=== PATIENT | male | born 1980 | race Caucasian/White ===

== ENCOUNTER 2017-04-30 22:35 | Emergency (ER) | payer MEDICARE, OTHER ==
[~2017-04-30] VITALS: Ht 180.3 cm; Wt 79.4 kg
[~2017-04-30 22:35] MED LIST: AMLO5TAB4 PO; CIPR500T94 PO; LAMO25TA5 PO; LORA-434 PO; LORA0.5T96 PO; LURA40TA PO; LURA80TA PO; MUPI22OI TP; QUET300T5 PO; QUET50TA5 PO; SULF1TAB24 PO; TRAZ-90 PO; TRAZ50TA15 PO; ZIPR80CA2 PO; [UNRECOGNIZED DRUG - OTHER]; latuda
[2017-04-30] MEDS ORDERED: MECLIZINE 12.5 MG TABLET. PO ONE (23:30)
[2017-04-30] MEDS ORDERED: LORazepam 1 MG TABLET PO ONE (23:30)
[2017-05-01 00:44] LABS: BASO # 0.1 x10^3/uL (0.0-0.2); BASO % 1 % (0-3); EOS # 0.3 x10^3/uL (0.0-0.7); EOS % 3 % (0-3); HEMOGLOBIN 14.7 g/dL (13.0-17.5); LYMPH # 2.8 x10^3/uL (1.0-4.8); LYMPH % 29 % (24-48); MEAN CORPUSCULAR HEMOGLOBIN 34 pg (25-35); MEAN CORPUSCULAR HGB CONC 35 g/dL (31-37); MEAN CORPUSCULAR VOLUME 97 fL (79-100); MONO # 0.5 x10^3/uL (0.0-1.1); MONO % 5 % (0-9); NEUT # 6.1 x10^3uL (1.8-7.7); NEUT % 63 % (31-73); PLATELET COUNT 283 x10^3/uL (140-400); RED BLOOD COUNT 4.34 x10^6/uL (4.30-5.70); RED CELL DISTRIBUTION WIDTH 13.3 % (11.5-14.5); WHITE BLOOD COUNT 9.8 x10^3/uL (4.0-11.0)
[2017-05-01 00:53] LABS: BARBITURATES NEG (NEG); BENZODIAZEPINES NEG (NEG); CANNABINOIDS POS (NEG); COCAINE NEG (NEG); METHADONE NEG (NEG); OPIATES NEG (NEG); PHENCYCLIDINE NEG (NEG)
[2017-05-01 00:59] LABS: ACETAMIN < 2 mcg/mL (10-30); ETHANOL < 10 mg/dL (0-10); SALIC 5.6 mg/dL (2.8-20.0)
[2017-05-01 01:00] LABS: AMPHETAMINE/METHAMPHETAMINE POS (NEG)
[2017-05-01 01:04] LABS: ALBUMIN 4.2 g/dL (3.4-5.0); ALBUMIN/GLOBULIN RATIO 1.2 (1.0-1.7); CALCIUM 9.3 mg/dL (8.5-10.1); CREATININE 0.9 mg/dL (0.7-1.3); GFR 95.5; POTASSIUM 3.7 mmol/L (3.5-5.1); TOTAL BILIRUBIN 0.4 mg/dL (0.2-1.0); TOTAL PROTEIN 7.8 g/dL (6.4-8.2)
[2017-05-01 02:00] VITALS: BP 142/78
--- NOTE | 2017-05-01 02:33 | PHYS DOC ---
Past History Past Medical History: Anxiety, Depression, Glaucoma Past Surgical History: Other Smoking: Cigarettes Alcohol Use: Occasionally Drug Use: Marijuana, Methamphetamine Adult General Chief Complaint Chief Complaint: SUICDAL IDEATION HPI HPI Patient is a 36 yo male, known schizophrenic presenting to ED for evaluation of hearing voices for several months and says that it is getting worse. Much worse today after using meth. He says that he has SI. He was at [facility] recently and says he would like to go back as the doctors there know him well. He says that he is having room spinning sensation but otherwise denies physical complaints. Review of Systems Review of Systems Constitutional: Denies fever or chills [] Eyes: Denies change in visual acuity, redness, or eye pain [] HENT: Denies nasal congestion or sore throat [] Respiratory: Denies cough or shortness of breath [] Cardiovascular: No additional information not addressed in HPI [] GI: Denies abdominal pain, nausea, vomiting, bloody stools or diarrhea [] : Denies dysuria or hematuria [] Musculoskeletal: Denies back pain or joint pain [] Integument: Denies rash or skin lesions [] Neurologic: Denies headache, focal weakness or sensory changes [] All other systems were reviewed and found to be within normal limits, except as documented in this note. Current Medications Current Medications Current Medications Medications (Trade) Dose Ordered Sig/Flaco Start Time Stop Time Status Last Admin Dose Admin Lorazepam (Ativan) 1 mg 1X ONCE 04/30/17 23:30 04/30/17 23:31 DC Meclizine HCl (Antivert) 25 mg 1X ONCE 04/30/17 23:30 04/30/17 23:31 DC Allergies Allergies Allergies Coded Allergies Type Severity Reaction Last Updated Verified haloperidol Allergy Intermediate Jaw movement. 06/08/14 Yes sertraline Allergy Intermediate serotonin syndrome 06/08/14 Yes olanzapine Allergy Mild TIREDNESS 10/16/14 No chlorpromazine Allergy Unknown 10/16/14 Yes risperidone Allergy Unknown 10/16/14 No Physical Exam Physical Exam Constitutional: Well developed, well nourished, no acute distress, non-toxic appearance. [] HENT: Normocephalic, atraumatic, bilateral external ears normal, oropharynx moist, no oral exudates, nose normal. [] Eyes: PERRLA, EOMI, conjunctiva normal, no discharge. [] Neck: Normal range of motion, no tenderness, supple, no stridor. [] Cardiovascular:Heart rate regular rhythm, no murmur [] Lungs & Thorax: Bilateral breath sounds clear to auscultation [] Abdomen: Bowel sounds normal, soft, no tenderness, no masses, no pulsatile masses. [] Skin: Warm, dry, no erythema, no rash. [] Back: No tenderness, no CVA tenderness. [] Extremities: No tenderness, no cyanosis, no clubbing, ROM intact, no edema. [] Neurologic: Alert and oriented X 3, normal motor function, normal sensory function, no focal deficits noted. [] Current Patient Data Vital Signs Vital Signs Date Time Temp Pulse Resp B/P (MAP) Pulse Ox O2 Delivery O2 Flow Rate FiO2 04/30/17 23:00 98.4 97 24 98 Room Air Lab Results Laboratory Tests Test 04/30/17 23:59 White Blood Count 9.8 x10^3/uL (4.0-11.0) Red Blood Count 4.34 x10^6/uL (4.30-5.70) Hemoglobin 14.7 g/dL (13.0-17.5) Hematocrit 42.0 % (39.0-53.0) Mean Corpuscular Volume 97 fL (79-100) Mean Corpuscular Hemoglobin 34 pg (25-35) Mean Corpuscular Hemoglobin Concent 35 g/dL (31-37) Red Cell Distribution Width 13.3 % (11.5-14.5) Platelet Count 283 x10^3/uL (140-400) Neutrophils (%) (Auto) 63 % (31-73) Lymphocytes (%) (Auto) 29 % (24-48) Monocytes (%) (Auto) 5 % (0-9) Eosinophils (%) (Auto) 3 % (0-3) Basophils (%) (Auto) 1 % (0-3) Neutrophils # (Auto) 6.1 x10^3uL (1.8-7.7) Lymphocytes # (Auto) 2.8 x10^3/uL (1.0-4.8) Monocytes # (Auto) 0.5 x10^3/uL (0.0-1.1) Eosinophils # (Auto) 0.3 x10^3/uL (0.0-0.7) Basophils # (Auto) 0.1 x10^3/uL (0.0-0.2) Sodium Level 139 mmol/L (136-145) Potassium Level 3.7 mmol/L (3.5-5.1) Chloride Level 105 mmol/L (98-107) Carbon Dioxide Level 20 mmol/L (21-32) L Anion Gap 14 (6-14) Blood Urea Nitrogen 14 mg/dL (8-26) Creatinine 0.9 mg/dL (0.7-1.3) Estimated GFR (Cockcroft-Gault) 95.5 BUN/Creatinine Ratio 16 (6-20) Glucose Level 79 mg/dL (70-99) Calcium Level 9.3 mg/dL (8.5-10.1) Total Bilirubin 0.4 mg/dL (0.2-1.0) Aspartate Amino Transferase (AST) 32 U/L (15-37) Alanine Aminotransferase (ALT) 35 U/L (16-63) Alkaline Phosphatase 85 U/L (46-116) Total Protein 7.8 g/dL (6.4-8.2) Albumin 4.2 g/dL (3.4-5.0) Albumin/Globulin Ratio 1.2 (1.0-1.7) Salicylates Level 5.6 mg/dL (2.8-20.0) Salicylate Last Dose Date 04/30/17 Salicylate Last Dose Time 0000 Urine Opiates Screen Neg (NEG) Urine Methadone Screen Neg (NEG) Acetaminophen Level < 2 mcg/mL (10-30) L Acetaminophen Last Dose Date 04/30/17 Acetaminophen Last Dose Time 0000 Urine Barbiturates Neg (NEG) Urine Phencyclidine Screen Neg (NEG) Urine Amphetamine/Methamphetamine Pos (NEG) Urine Benzodiazepines Screen Neg (NEG) Urine Cocaine Screen Neg (NEG) Urine Cannabinoids Screen Pos (NEG) Ethyl Alcohol Level < 10 mg/dL (0-10) Urine Ethyl Alcohol Pos (NEG) EKG EKG [] Radiology/Procedures Radiology/Procedures [] Course & Med Decision Making Course & Med Decision Making Patient is stable medically. He is requesting psych evaluation and possible transfer. Will await psych evaluation. Psych eval still pending. Transfer of care at [address] Cosby. 0708: Patient was evaluated by [facility] telemed and psychiatric recommended inpatient treatment for the patient. Waiting for findings available inpatient psychiatric bed. 0945: Dr Arenas accepted patient for transfer to [facility]. She informed about plan of care. Dragon Disclaimer Dragon Disclaimer This electronic medical record was generated, in whole or in part, using a voice recognition dictation system. Departure Departure: Impression: Primary Impression: Schizophrenia Additional Impressions: Agitation Suicidal ideation Referrals: RENETTA MEYERS MD (PCP) Problem Qualifiers Primary Impression: Schizophrenia Schizophrenia type: paranoid schizophrenia Qualified Codes: F20.0 - Paranoid schizophrenia PAMELA WALLACE DO May 01, 2017 02:33 JAME COSBY MD May 01, 2017 07:10
[2017-05-01] MEDS ORDERED: QUET400T6 PO (09:08)
[2017-05-01] MEDS ORDERED: QUET25TA5 PO (09:09)
[2017-05-01] MEDS ORDERED: TOPI50TA38 PO (09:09)
== END 2017-05-01 10:11 ==
LOC: ER 22:35
DX: F20.0 Paranoid schizophrenia (principal); R45.851 Suicidal ideations; R45.1 Restlessness and agitation; F41.9 Anxiety disorder, unspecified; F32.9 Major depressive disorder, single episode, unspecified; F17.210 Nicotine dependence, cigarettes, uncomplicated; F15.10 Other stimulant abuse, uncomplicated; F12.10 Cannabis abuse, uncomplicated; Z88.8 Allergy status to other drugs, medicaments and biological substances
CPT/HCPCS: 36415; 80053; 80307; 84443; 85025; 99285; G0480; J8597; G0479

== ENCOUNTER 2018-03-06 19:02 | Inpatient (IN) | payer MEDICARE, OTHER ==
[~2018-03-06] VITALS: Ht 180.3 cm; Wt 70.8 kg
[~2018-03-06 19:02] MED LIST changes: +LORA-254 PO; -LORA-434 PO; +QUET25TA5 PO; +QUET400T6 PO; +TOPI50TA38 PO; +TRAZ-85 PO; +TRAZ-86 PO; -TRAZ-90 PO; -TRAZ50TA15 PO
[2018-03-06 19:45] LABS: BASO # 0.1 x10^3/uL (0.0-0.2); BASO % 1 % (0-3); EOS # 0.5 x10^3/uL (0.0-0.7); EOS % 5 % (0-3); HEMATOCRIT 47.2 % (39.0-53.0); HEMOGLOBIN 16.3 g/dL (13.0-17.5); LYMPH # 2.9 x10^3/uL (1.0-4.8); LYMPH % 30 % (24-48); MEAN CORPUSCULAR HEMOGLOBIN 34 pg (25-35); MEAN CORPUSCULAR HGB CONC 35 g/dL (31-37); MEAN CORPUSCULAR VOLUME 97 fL (79-100); MONO # 0.8 x10^3/uL (0.0-1.1); MONO % 8 % (0-9); NEUT # 5.4 x10^3uL (1.8-7.7); NEUT % 56 % (31-73); PLATELET COUNT 263 x10^3/uL (140-400); RED BLOOD COUNT 4.85 x10^6/uL (4.30-5.70); RED CELL DISTRIBUTION WIDTH 12.7 % (11.5-14.5); WHITE BLOOD COUNT 9.7 x10^3/uL (4.0-11.0)
[2018-03-06 19:53] LABS: ALBUMIN 4.1 g/dL (3.4-5.0); ALBUMIN/GLOBULIN RATIO 1.1 (1.0-1.7); CALCIUM 8.7 mg/dL (8.5-10.1); CREATININE 0.9 mg/dL (0.7-1.3); POTASSIUM 3.4 mmol/L (3.5-5.1); TOTAL BILIRUBIN 0.6 mg/dL (0.2-1.0); TOTAL PROTEIN 7.7 g/dL (6.4-8.2)
--- NOTE | 2018-03-06 20:09 | PHYS DOC ---
Past History Past Medical History: Anxiety, Bipolar, Depression, Glaucoma Past Surgical History: Other Smoking: Cigarettes Alcohol Use: Occasionally Drug Use: Marijuana, Methamphetamine Adult General Chief Complaint Chief Complaint: SUICDAL IDEATION HPI HPI 37-year-old male presents via EMS with suicidal ideation. Patient states that he has been doing drugs last several days and not taking any of his bipolar or schizoaffective disorder medications. Patient has a long history of drug use. He states he has been feeling increasingly useless and a burden to his family. He is bumping a lot about suicide, but does not have a specific plan. He feels like his mind is running in many directions. He admits to having poor concept of time. He denies fever or chills. He does not believe he has any medical complaints. Review of Systems Review of Systems Constitutional: Denies fever or chills [] Eyes: Denies change in visual acuity, redness, or eye pain [] HENT: Denies nasal congestion or sore throat [] Respiratory: Denies cough or shortness of breath [] Cardiovascular: No additional information not addressed in HPI [] GI: Denies abdominal pain, nausea, vomiting, bloody stools or diarrhea [] : Denies dysuria or hematuria [] Musculoskeletal: Denies back pain or joint pain [] Integument: Denies rash or skin lesions [] Neurologic: Denies headache, focal weakness or sensory changes [] Endocrine: Denies polyuria or polydipsia [] All other systems were reviewed and found to be within normal limits, except as documented in this note. Allergies Allergies Allergies Coded Allergies Type Severity Reaction Last Updated Verified haloperidol Allergy Intermediate Jaw movement. 06/08/14 Yes sertraline Allergy Intermediate serotonin syndrome 06/08/14 Yes olanzapine Allergy Mild TIREDNESS 10/16/14 No chlorpromazine Allergy Unknown 10/16/14 Yes risperidone Allergy Unknown 10/16/14 No Physical Exam Physical Exam Constitutional: Well developed, well nourished, no acute distress, non-toxic appearance. [] HENT: Normocephalic, atraumatic, bilateral external ears normal, oropharynx moist, no oral exudates, nose normal. [] Eyes: PERRLA, EOMI, conjunctiva normal, no discharge. [] Neck: Normal range of motion, no tenderness, supple, no stridor. [] Cardiovascular:Heart rate regular rhythm, no murmur [] Lungs & Thorax: Bilateral breath sounds clear to auscultation [] Abdomen: Bowel sounds normal, soft, no tenderness, no masses, no pulsatile masses. [] Skin: Warm, dry, no erythema, no rash. [] Back: No tenderness, no CVA tenderness. [] Extremities: No tenderness, no cyanosis, no clubbing, ROM intact, no edema. [] Neurologic: Alert and oriented X 3, normal motor function, normal sensory function, no focal deficits noted. [] Psychologic: Affect anxious, judgement impaired, pressured speech, mood depressed. [] Current Patient Data Vital Signs Vital Signs Date Time Temp Pulse Resp B/P (MAP) Pulse Ox O2 Delivery O2 Flow Rate FiO2 03/06/18 19:04 98.2 76 18 97 Room Air Lab Results Laboratory Tests Test 03/06/18 19:17 White Blood Count 9.7 x10^3/uL (4.0-11.0) Red Blood Count 4.85 x10^6/uL (4.30-5.70) Hemoglobin 16.3 g/dL (13.0-17.5) Hematocrit 47.2 % (39.0-53.0) Mean Corpuscular Volume 97 fL (79-100) Mean Corpuscular Hemoglobin 34 pg (25-35) Mean Corpuscular Hemoglobin Concent 35 g/dL (31-37) Red Cell Distribution Width 12.7 % (11.5-14.5) Platelet Count 263 x10^3/uL (140-400) Neutrophils (%) (Auto) 56 % (31-73) Lymphocytes (%) (Auto) 30 % (24-48) Monocytes (%) (Auto) 8 % (0-9) Eosinophils (%) (Auto) 5 % (0-3) H Basophils (%) (Auto) 1 % (0-3) Neutrophils # (Auto) 5.4 x10^3uL (1.8-7.7) Lymphocytes # (Auto) 2.9 x10^3/uL (1.0-4.8) Monocytes # (Auto) 0.8 x10^3/uL (0.0-1.1) Eosinophils # (Auto) 0.5 x10^3/uL (0.0-0.7) Basophils # (Auto) 0.1 x10^3/uL (0.0-0.2) Sodium Level 139 mmol/L (136-145) Potassium Level 3.4 mmol/L (3.5-5.1) L Chloride Level 101 mmol/L (98-107) Carbon Dioxide Level 27 mmol/L (21-32) Anion Gap 11 (6-14) Blood Urea Nitrogen 16 mg/dL (8-26) Creatinine 0.9 mg/dL (0.7-1.3) Estimated GFR (Cockcroft-Gault) 95.0 BUN/Creatinine Ratio 18 (6-20) Glucose Level 95 mg/dL (70-99) Calcium Level 8.7 mg/dL (8.5-10.1) Total Bilirubin 0.6 mg/dL (0.2-1.0) Aspartate Amino Transferase (AST) 19 U/L (15-37) Alanine Aminotransferase (ALT) 20 U/L (16-63) Alkaline Phosphatase 74 U/L (46-116) Total Protein 7.7 g/dL (6.4-8.2) Albumin 4.1 g/dL (3.4-5.0) Albumin/Globulin Ratio 1.1 (1.0-1.7) EKG EKG [] Radiology/Procedures Radiology/Procedures [] Course & Med Decision Making Course & Med Decision Making Pertinent Labs and Imaging studies reviewed. (See chart for details) The patient does appear to be very stressed about his current situation. He is asking for help. He does not have a specific suicidal plan that he shares with me. He does admit to needing help with his psychologic disorders and his substance use. The patient had an outburst in the emergency room stating that he wanted to leave. We were able to convince him to finish the process of being evaluated by psychiatry. When he finally was able to talk to the counselor via computer he did not want to talk to them. They're final advice was to make the patient involuntarily admitted. There are no involuntary beds available. The patient will be admitted to the hospital. I talked with Dr. Zurita and he has accepted the patient for admission. [] Dragon Disclaimer Dragon Disclaimer This electronic medical record was generated, in whole or in part, using a voice recognition dictation system. Departure Departure: Impression: Primary Impression: Suicidal ideation Additional Impressions: Schizophrenia Methamphetamine abuse Marijuana abuse Disposition: 09 ADMITTED INPATIENT Condition: STABLE Referrals: RENETTA MEYERS MD (PCP) Problem Qualifiers NADIA SPICER DO Mar 06, 2018 20:09
[2018-03-06 20:55] LABS: COLOR,URINE YELLOW
[2018-03-06 20:58] LABS: BACTERIA,URINE 0 /HPF (0-FEW); BILIRUBIN,URINE NEG (NEG); GLUCOSE,URINE NEG (NEG); NITRITE,URINE NEG (NEG); RBC,URINE 0 /HPF (0-2); SQUAMOUS EPITHELIAL CELL,UR FEW /LPF; UROBILINOGEN,URINE 0.2 mg/dL (0.2 mg/dL); WBC,URINE 0 /HPF (0-4)
[2018-03-06 20:59] LABS: BARBITURATES NEG (NEG); BENZODIAZEPINES NEG (NEG); CANNABINOIDS POS (NEG); CLARITY,URINE CLEAR; COCAINE NEG (NEG); METHADONE NEG (NEG); OPIATES NEG (NEG); PHENCYCLIDINE NEG (NEG)
[2018-03-06 21:01] LABS: AMPHETAMINE/METHAMPHETAMINE POS (NEG)
[2018-03-06] MEDS ORDERED: LORazepam 2 MG/ML VIAL ONE (21:56)
[2018-03-06] MEDS ORDERED: HALOPERIDOL LACT 5 MG/ML VIAL. ONE (21:56)
[2018-03-07] MEDS ORDERED: ONDANSETRON PF 4 MG/2 ML VIAL. IV PRN (03:00)
[2018-03-07] MEDS ORDERED: LORazepam 2 MG/ML VIAL IM PRN (03:00)
[2018-03-07] MEDS ORDERED: HALOPERIDOL LACT 5 MG/ML VIAL. IM PRN (03:00)
[2018-03-07 03:13] VITALS: BP 117/62
[2018-03-07 06:08] VITALS: BP 97/69
[2018-03-07 10:35] VITALS: BP 121/74
--- NOTE | 2018-03-07 12:44 | HP ---
ADMIT DATE: 03/07/2018 HISTORY OF PRESENT ILLNESS: The patient is a 37-year-old male patient who was brought to the Emergency Room by emergency medical service personnel with suicidal ideation. He stated that he has been doing drugs for the last several days, not taking any of his bipolar or schizoaffective disorder medications. He apparently has a long history of drug use. He stated that he has been feeling increasingly useless and burden on his family. He is thinking a lot about suicide, but does not have a plan. He feels like his mind is running in many directions. He admits to having poor concept of time, but denied any other complication. Does not have any specific medical complaints. He was extensively investigated in the Emergency Room and was basically admitted for suicidal ideation, schizophrenia, methamphetamine and marijuana abuse. PAST MEDICAL HISTORY: Significant for anxiety, depression. He also has glaucoma. PAST SURGICAL HISTORY: Significant for right ankle fracture, status post open reduction and internal fixation. ALLERGIES: HE IS ALLERGIC TO CHLORPROMAZINE, HALOPERIDOL, OLANZAPINE, RISPERIDONE AND SERTRALINE. MEDICATIONS: He is currently on following medications: He is on Topamax 50 mg twice a day, quetiapine fumarate extended release 400 mg at bedtime, and quetiapine fumarate 25 mg p.o. daily as needed for anxiety. FAMILY HISTORY: He has 2 brothers and 1 sister. He does not know his biological father. His mother is his DPOA. She is according to him is a heavy drinker. SOCIAL HISTORY: Single, never . He smokes 1-3 packs a day. He does not drink alcohol, but uses marijuana and amphetamine heavily. He has 4 children, 1 son and 3 daughters from encounters with different women, but he is not anyone of them. REVIEW OF SYSTEMS: As per history of present illness. PHYSICAL EXAMINATION: GENERAL: On examining him, he was sitting on the edge of the bed comfortably in no apparent respiratory distress. He was slightly pale, but no jaundice, cyanosis, lymphadenopathy, or thyromegaly. No jugular venous distension. No limb edema. VITAL SIGNS: His heart rate was 79, blood pressure 121/74, temperature was 98.4, respiratory rate 20, and oxygen saturation was 98%. HEAD, EYES, EARS, NOSE, AND THROAT: Showed normocephalic, atraumatic. NECK: Supple. HEART: Showed normal first and second sounds. No gallop, rub, or murmur. CHEST: Clear to auscultation. No crepitation or rhonchi. ABDOMEN: Scaphoid, soft, nontender. NEUROLOGIC: He was awake, alert, responding appropriately. All cranial nerves intact. He moves extremities without difficulty, ambulates without assistance or assistive devices. LABORATORY DATA: On arrival showed a white cell count 9700, hemoglobin 16, hematocrit 47, MCV 97, and platelet count 263,000 with normal manual differential. His chemistry showed a serum sodium 139, potassium 3.4, chloride 101, bicarbonate 27, anion gap of 11, BUN 16, creatinine 0.9, estimated GFR was 95 mL per minute. His glucose was 95, calcium was 8.7. Total bilirubin, AST, ALT, alkaline phosphatase were normal. Total protein was 7.7, albumin was 4.1. Urinalysis showed the urine was yellow, clear with a pH of 6, specific gravity 1.005. The urine was negative for protein, glucose, ketones, blood, nitrite and leukocyte esterase. There are no RBCs, no WBCs and very few bacteria. His toxic screen was positive for amphetamine, methamphetamine as well as cannabinoids. It was negative for alcohol, cocaine, benzodiazepine, barbiturates, methadone, and opiates. ASSESSMENT: The patient was admitted with a diagnosis of suicidal ideation, schizophrenia, methamphetamine abuse, marijuana abuse. Would consult Dr. Parra, the psychiatrist and also our social insurance analyst for replacement for inpatient psychiatric stabilization. DAVID GUNTER MD DR: JEFF/bry JOB#: [id number] / [id number]
[2018-03-07] MEDS ORDERED: LORazepam 1 MG TABLET PO PRN ×2 (12:45→13:00)
[2018-03-07 16:56] VITALS: BP 111/70
== END 2018-03-07 18:15 | DRG 897 ==
LOC: ER 19:02 → 1 SOUTH 03-07 02:55
PROVIDERS: ADMIT Internal Medicine; ATTEND Internal Medicine
DX: F12.10 Cannabis abuse, uncomplicated (principal); R45.851 Suicidal ideations; F20.9 Schizophrenia, unspecified; F15.10 Other stimulant abuse, uncomplicated; F17.210 Nicotine dependence, cigarettes, uncomplicated; F31.9 Bipolar disorder, unspecified; H40.9 Unspecified glaucoma; F41.9 Anxiety disorder, unspecified; Z88.8 Allergy status to other drugs, medicaments and biological substances
CPT/HCPCS: 36415; 80053; 80307; 81001; 85025; 99406; 99285-25

== ENCOUNTER 2019-06-10 16:15 | Emergency (ER) | payer MEDICARE, OTHER ==
[~2019-06-10] VITALS: Ht 180.3 cm; Wt 85.2 kg
[~2019-06-10 16:15] MED LIST changes: -QUET400T6 PO; +QUET400T7 PO; +TRAZ-120 PO; +TRAZ-125 PO; -TRAZ-85 PO; -TRAZ-86 PO
--- NOTE | 2019-06-10 16:34 | PHYS DOC ---
Past History Past Medical History: Anxiety, Bipolar, Depression, Glaucoma (ILDA DOWLING DO) Past Surgical History: Other (ILDA DOWLING DO) Smoking: Cigarettes Alcohol Use: Occasionally Drug Use: Marijuana, Methamphetamine (ILDA DOWLING DO) General Adult EDM: Chief Complaint: CHEST PAIN HPI: HPI: Patient is a 38-year-old male who was brought here by police due to chest pain and trouble breathing. Patient was in a fight with his family, police was called, when they took him into the police car and handcuffed patient, [facility] when he started complaining of chest pain and trouble breathing. Patient denies any fever., No cough. Denies any abdominal pain, no nausea vomiting. Patient told police that he drank some bedbug solution this morning because he wanted to . Somehow he did not say anything like this before. Police then brought him here for medical clearance before they take him to [facility]. The same business liaison officer who took patient to a different ER 2 weeks ago for the same problem. Patient was arrested 2 weeks ago, then he told the officer that he was suicidal therefore they brought him to [facility] and released him from police custody because they did not have enough staff to watch him. Patient said he was recently released from psychiatric hospital, he continued to be suicidal. Patient has history of schizophrenia. When this physician asked him if he is suicidal, patient admits that he has nothing to live for. Patient also complained of pain in his right hand. (ILDA DOWLING DO) Review of Systems: Review of Systems: Constitutional: Denies fever or chills Eyes: Denies change in visual acuity HENT: Denies nasal congestion or sore throat Respiratory: Denies cough or shortness of breath Cardiovascular: Positive for chest pain no edema GI: Denies abdominal pain, nausea, vomiting, bloody stools or diarrhea : Denies dysuria Musculoskeletal: Denies back pain or joint pain Integument: Denies rash Neurologic: Denies headache, focal weakness or sensory changes Endocrine: Denies polyuria or polydipsia Lymphatic: Denies swollen glands Psychiatric: Denies depression or anxiety, positive for suicidal ideation. (ILDA DOWLING DO) Heart Score: HEART Score for Chest Pain: HEART Score for Chest Pain Response (Comments) Value History Slighlty/Non-Suspicious 0 ECG Normal 0 Age < 45 0 Risk Factors No Risk Factors 0 Troponin < Normal Limit 0 Total 0 Risk Factors: Risk Factors: DM, Current or recent (<one month) smoker, HTN, HLP, family history of CAD, obesity. Risk Scores: Score 0 - 3: 2.5% MACE over next 6 weeks - Discharge Home Score 4 - 6: 20.3% MACE over next 6 weeks - Admit for Clinical Observation Score 7 - 10: 72.7% MACE over next 6 weeks - Early Invasive Strategies (ILDA DOWLING DO) Allergies: Allergies: Allergies Coded Allergies Type Severity Reaction Last Updated Verified chlorpromazine Allergy Intermediate 03/07/18 Yes haloperidol Allergy Intermediate Jaw movement. 06/08/14 Yes risperidone Allergy Intermediate 03/07/18 No sertraline Allergy Intermediate serotonin syndrome 06/08/14 Yes olanzapine Allergy Mild TIREDNESS 10/16/14 No (ILDA DOWLING DO) Physical Exam: PE: Constitutional: Well developed, well nourished, no acute distress, non-toxic appearance. [] HENT: Normocephalic, atraumatic, bilateral external ears normal, oropharynx moist, no oral exudates, nose normal. [] Eyes: PERRLA, EOMI, conjunctiva normal, no discharge. [] Neck: Normal range of motion, no tenderness, supple, no stridor. [] Cardiovascular:Heart rate regular rhythm, no murmur [] Lungs & Thorax: Bilateral breath sounds clear to auscultation [] Abdomen: Bowel sounds normal, soft, no tenderness, no masses, no pulsatile masses. [] Skin: Warm, dry, no erythema, no rash. [] Back: No tenderness, no CVA tenderness. [] Extremities: No tenderness, no cyanosis, no clubbing, ROM intact, no edema. There is no swelling or deformity in his right hand. Neurologic: Alert and oriented X 3, normal motor function, normal sensory function, no focal deficits noted. [] Psychologic: Affect normal, judgement normal, mood normal. Patient is endorsing suicidal ideation at this time. (ILDA DOWLING DO) PE: Constitutional: Well developed, well nourished, no acute distress, non-toxic appearance HENT: Normocephalic, atraumatic Eyes: Conjunctiva normal, no discharge Neck: Normal range of motion, no tenderness, supple Lungs & Thorax: No respiratory distress, equal chest rise and fall Neurologic: Alert and oriented X 3, no focal deficits noted (PAULETTE WANG DO) Current Patient Data: Labs: Laboratory Tests Test 06/10/19 16:50 06/10/19 17:30 White Blood Count 8.0 x10^3/uL Red Blood Count 4.13 x10^6/uL Hemoglobin 14.0 g/dL Hematocrit 41.6 % Mean Corpuscular Volume 101 fL Mean Corpuscular Hemoglobin 34 pg Mean Corpuscular Hemoglobin Concent 34 g/dL Red Cell Distribution Width 14.5 % Platelet Count 214 x10^3/uL Neutrophils (%) (Auto) 60 % Lymphocytes (%) (Auto) 23 % Monocytes (%) (Auto) 9 % Eosinophils (%) (Auto) 7 % Basophils (%) (Auto) 1 % Neutrophils # (Auto) 4.7 x10^3uL Lymphocytes # (Auto) 1.8 x10^3/uL Monocytes # (Auto) 0.7 x10^3/uL Eosinophils # (Auto) 0.6 x10^3/uL Basophils # (Auto) 0.1 x10^3/uL Prothrombin Time 9.5 SEC Prothromb Time International Ratio 0.9 Activated Partial Thromboplast Time 26 SEC Sodium Level 142 mmol/L Potassium Level 3.2 mmol/L Chloride Level 104 mmol/L Carbon Dioxide Level 26 mmol/L Anion Gap 12 Blood Urea Nitrogen 12 mg/dL Creatinine 0.8 mg/dL Estimated GFR (Cockcroft-Gault) 108.2 BUN/Creatinine Ratio 15 Glucose Level 102 mg/dL Calcium Level 8.6 mg/dL Magnesium Level 2.2 mg/dL Total Bilirubin 0.7 mg/dL Aspartate Amino Transf (AST/SGOT) 60 U/L Alanine Aminotransferase (ALT/SGPT) 113 U/L Alkaline Phosphatase 62 U/L Troponin I Quantitative < 0.017 ng/mL VN-Axe-D-Type Natriuretic Peptide 66 pg/mL Total Protein 7.2 g/dL Albumin 3.9 g/dL Albumin/Globulin Ratio 1.2 Salicylates Level < 2.8 mg/dL Salicylate Last Dose Date Unknown Salicylate Last Dose Time Unknown Acetaminophen Level < 2.0 mcg/mL Acetaminophen Last Dose Date Unknown Acetaminophen Last Dose Time Unknown Ethyl Alcohol Level < 10 mg/dL Urine Collection Type Unknown Urine Color Yellow Urine Clarity Hazy Urine pH 6.5 Urine Specific [place] 1.025 Urine Protein 100 mg/dl Urine Glucose (UA) Neg mg/dL Urine Ketones (Stick) Trace mg/dL Urine Blood Neg Urine Nitrite Neg Urine Bilirubin Neg Urine Urobilinogen Dipstick 1.0 mg/dL Urine Leukocyte Esterase Neg Urine RBC Occ /HPF Urine WBC 0 /HPF Urine Squamous Epithelial Cells Few /LPF Urine Bacteria Few /HPF Urine Mucus Mod /LPF Urine Opiates Screen Neg Urine Methadone Screen Neg Urine Barbiturates Neg Urine Phencyclidine Screen Neg Urine Amphetamine/Methamphetamine Pos Urine Benzodiazepines Screen Neg Urine Cocaine Screen Neg Urine Cannabinoids Screen Pos Urine Ethyl Alcohol Neg Current Medications Medications (Trade) Dose Ordered Sig/Flaco Route PRN Reason Start Time Stop Time Status Last Admin Dose Admin Potassium Chloride (Klor-Con) 40 meq 1X ONCE PO 06/10/19 18:00 06/10/19 18:01 DC (GARY RUIZ DO) EKG: EKG: EKG was done at 1621, heart rate of 95 beats per minute, normal sinus rhythm, normal axis, no ST segment elevation. [] (ILDA DOWLING DO) Radiology/Procedures: Radiology/Procedures: [][place] [address] IMAGING REPORT Signed PATIENT: JI LORENZO WACCOUNT: [id number] : 1980 LOCATION: ER AGE: 38 SEX: M EXAM STATUS: REG ER ORD. PHYSICIAN: ILDA DOWLING DO REASON: right hand pain PROCEDURE: HAND RIGHT 3V EXAM: PA, oblique and lateral views of the right hand DATE: 06/10/2019 4:34 PM INDICATION: Right hand pain COMPARISON: No Prior FINDINGS/ IMPRESSION: 1. No evidence of acute fracture or dislocation. If there is persistent clinical concern for fracture, follow-up radiographs in 10-14 days is recommended. 2. Joint spaces are preserved without significant degenerative/proliferative change. 3. Of note, the lateral view is limited given overlap of the fingers. Electronically signed by: Sudhakar Lozoya MD (06/10/2019 5:01 PM) [facility] DICTATED AND SIGNED BY: SUDHAKAR LOZOYA MD DATE: 06/10/191700 CC: RENETTA MEYERS MD; ILDA DOWLING DO ~ [place] [address] IMAGING REPORT Signed PATIENT: JI LORENZOCCOUNT: [id number] : 1980 LOCATION: ER AGE: 38 SEX: M EXAM STATUS: REG ER ORD. PHYSICIAN: ILDA DOWLING DO REASON: chest pain PROCEDURE: CHEST AP ONLY CHEST AP ONLY Clinical indications: Chest pain. COMPARISON: None available. Findings: Decreased inspiration is seen. Bilateral peribronchial thickening is seen versus central interstitial lung infiltrates. No lung consolidation or pleural effusion or Jen B lines or lung mass or pneumothorax is seen. The heart size, pulmonary vasculature, mediastinum and both max are unremarkable. Impression: Decreased inspiration. Bilateral bronchitis versus central viral interstitial pneumonitis. No consolidative pneumonia. Electronically signed by: Mat Griffith MD (06/10/2019 5:05 PM) [id number] DICTATED AND SIGNED BY: MAT GRIFFITH MD DATE: 06/10/191704 CC: RENETTA MEYERS MD; ILDA DOWLING DO ~ (ILDA DOWLING DO) Course & Med Decision Making: Course & Med Decision Making Pertinent Labs and Imaging studies reviewed. (See chart for details) Patient is a 38-year-old man who was brought here by police after he was involved in altercation at home with his family. Patient was arrested, [facility] when he started telling the copier repair technician that he was having chest pain, and suicidal. Apparently this was a pattern that patient used, it happened 2 weeks ago when he was arrested as well. [facility] ER at [facility] for evaluation. Patient will need mental health screening. Patient's case was transferred to Dr. Gary Ruiz at shift change pending mental health screening. (ILDA DOWLING DO) Course & Med Decision Making 1800 Care of case assumed by me. 1825 medically patient is cleared. Awaiting psychiatric assessment before final disposition decision. Patient positive for methamphetamine. Patient remains in police custody and 1 arm is handcuffed at bedside. Patient able to answer basic questions without difficulty and is cooperative at this time. Patient had discussed suicidal thoughts earlier today and had a similar episode including being combative about a week ago 1950 initial psychiatric assessment complete. Patient meets criteria for involuntary commitment. Awaiting placement now. tactical deception plans officer no longer at bedside. [address] [place] excepted but they are waiting to hear back from the patient's guardian. 2306 still no word from the patient's guardian. The screener will continue to try to reach them. Until then we will keep the patient in the ER for observation 0130 Still resting comfortably, no work yet from his guardian. Hold from [facility] is valid until 10 PM this evening (GARY RUIZ DO) Course & Med Decision Making 0600- Sign out received from Dr. Ruiz for patient awaiting guarding acceptance for patient to go to [facility]. Patient had been previously accepted at [facility] but received guarding approval. Apparently there was some difficulty in getting in touch with guardians. Reports that patient was sleeping majority of night and without issue. Labs reviewed. 0953: Varun Acosta at [facility] accepting of transfer of patient for mental health. Patient stable for transfer to [facility] for mental health admission. Discussed findings and plan with patient, who acknowledges understanding and agreement. (PAULETTE WANG DO) Dragon Disclaimer: Dragjose Disclaimer: This electronic medical record was generated, in whole or in part, using a voice recognition dictation system. (ILDA DOWLING DO) Departure Departure: Impression: Primary Impression: Chest pain Qualified Codes: R07.9 - Chest pain, unspecified Additional Impressions: Suicidal thoughts Schizophrenia Qualified Codes: F20.9 - Schizophrenia, unspecified Methamphetamine abuse Disposition: 05 TRANSFER OTHER ([facility]- Dr. Bond accepting) Condition: STABLE Referrals: RENETTA MEYERS MD (PCP) ILDA DOWLING DO June 10, 2019 16:34 GARY RUIZ DO June 10, 2019 18:07 PAULETTE WANG DO June 11, 2019 06:35
--- NOTE | 2019-06-10 17:04 | RAD ---
EXAM: PA, oblique and lateral views of the right hand DATE: 06/10/2019 4:34 PM INDICATION: Right hand pain COMPARISON: No Prior FINDINGS/ IMPRESSION: 1. No evidence of acute fracture or dislocation. If there is persistent clinical concern for fracture, follow-up radiographs in 10-14 days is recommended. 2. Joint spaces are preserved without significant degenerative/proliferative change. 3. Of note, the lateral view is limited given overlap of the fingers. Electronically signed by: Sudhakar Martinez MD (06/10/2019 5:01 PM) [facility] [place]
--- NOTE | 2019-06-10 17:08 | RAD ---
CHEST AP ONLY Clinical indications: Chest pain. COMPARISON: None available. Findings: Decreased inspiration is seen. Bilateral peribronchial thickening is seen versus central interstitial lung infiltrates. No lung consolidation or pleural effusion or Jen B lines or lung mass or pneumothorax is seen. The heart size, pulmonary vasculature, mediastinum and both max are unremarkable. Impression: Decreased inspiration. Bilateral bronchitis versus central viral interstitial pneumonitis. No consolidative pneumonia. Electronically signed by: Mat Griffith MD (06/10/2019 5:05 PM) [id number]
[2019-06-10 17:12] LABS: BASO # 0.1 x10^3/uL (0.0-0.2); BASO % 1 % (0-3); EOS # 0.6 x10^3/uL (0.0-0.7); EOS % 7 % (0-3); HEMATOCRIT 41.6 % (39.0-53.0); LYMPH # 1.8 x10^3/uL (1.0-4.8); LYMPH % 23 % (24-48); MEAN CORPUSCULAR HEMOGLOBIN 34 pg (25-35); MEAN CORPUSCULAR HGB CONC 34 g/dL (31-37); MEAN CORPUSCULAR VOLUME 101 fL (79-100); MONO # 0.7 x10^3/uL (0.0-1.1); MONO % 9 % (0-9); NEUT # 4.7 x10^3uL (1.8-7.7); NEUT % 60 % (31-73); PLATELET COUNT 214 x10^3/uL (140-400); RED BLOOD COUNT 4.13 x10^6/uL (4.30-5.70); RED CELL DISTRIBUTION WIDTH 14.5 % (11.5-14.5)
[2019-06-10 17:25] LABS: CALCIUM 8.6 mg/dL (8.5-10.1); CREATININE 0.8 mg/dL (0.7-1.3); GFR 108.2; POTASSIUM 3.2 mmol/L (3.5-5.1)
[2019-06-10 17:30] LABS: ETHANOL < 10 mg/dL (0-10); SALIC < 2.8 mg/dL (2.8-20.0)
[2019-06-10 17:31] LABS: ACETAMIN < 2.0 mcg/mL (10-30)
[2019-06-10 17:32] LABS: ALBUMIN 3.9 g/dL (3.4-5.0); ALBUMIN/GLOBULIN RATIO 1.2 (1.0-1.7); MAGNESIUM 2.2 mg/dL (1.8-2.4); TOTAL BILIRUBIN 0.7 mg/dL (0.2-1.0); TOTAL PROTEIN 7.2 g/dL (6.4-8.2)
[2019-06-10 17:49] LABS: CLARITY,URINE HAZY; COLOR,URINE YELLOW
[2019-06-10 17:50] LABS: BARBITURATES NEG (NEG); BENZODIAZEPINES NEG (NEG); CANNABINOIDS POS (NEG); COCAINE NEG (NEG); METHADONE NEG (NEG); OPIATES NEG (NEG); PHENCYCLIDINE NEG (NEG)
[2019-06-10 17:51] LABS: GLUCOSE,URINE NEG (NEG)
[2019-06-10 17:52] LABS: BILIRUBIN,URINE NEG (NEG)
[2019-06-10 17:53] LABS: NITRITE,URINE NEG (NEG)
[2019-06-10 17:54] LABS: AMPHETAMINE/METHAMPHETAMINE POS (NEG)
--- NOTE | 2019-06-10 17:57 | EKG ---
[address] [address] Test Date: 2019-06-10 Test Time: 16:21:56 Pat Name: JI LORENZO Department: Room: Gender: M Hide Sorter: : 1980 Requested By: ILDA DOWLING Order Number: [id number] Reading MD: Vimal Rachel Measurements Intervals [place] Rate: 95 P: 39 MD: 136 QRS: 32 QRSD: 82 T: 25 QT: 332 QTc: 420 Interpretive Statements SINUS RHYTHM NORMAL ECG Electronically Signed On 06-12-2019 8:49:11 CDT by Vimal Rachel
[2019-06-10 17:58] LABS: BACTERIA,URINE FEW /HPF (0-FEW); RBC,URINE OCC /HPF (0-2); SQUAMOUS EPITHELIAL CELL,UR FEW /LPF; WBC,URINE 0 /HPF (0-4)
[2019-06-10] MEDS ORDERED: POTASSIUM CHLORIDE 20 MEQ TABLET.ER. PO ONE (18:00)
[2019-06-11 09:45] VITALS: BP 129/74
== END 2019-06-11 10:43 ==
LOC: ER 16:15
DX: R07.89 Other chest pain (principal); R45.851 Suicidal ideations; F20.9 Schizophrenia, unspecified; F15.10 Other stimulant abuse, uncomplicated; M79.641 Pain in right hand; F41.9 Anxiety disorder, unspecified; F31.9 Bipolar disorder, unspecified; F17.210 Nicotine dependence, cigarettes, uncomplicated; F12.10 Cannabis abuse, uncomplicated; Z88.8 Allergy status to other drugs, medicaments and biological substances
CPT/HCPCS: 36415; 71045; 73130; 80053; 80307; 80329; 81001; 83735; 83880; 84484; 85025; 85610; 85730; 93005; 99285; G0480

== ENCOUNTER 2020-05-05 20:16 | Emergency (ER) | payer MEDICARE ==
[~2020-05-05] VITALS: Ht 180.3 cm; Wt 87.2 kg
[2020-05-05 20:16] VITALS: BP 152/101
[~2020-05-05 20:16] MED LIST changes: +LORA0.5T21 PO; -LORA0.5T96 PO
--- NOTE | 2020-05-05 20:25 | PHYS DOC ---
Past History Past Medical History: Anxiety, Bipolar, Depression, Glaucoma, Schizophrenia Past Surgical History: No Surgical History Smoking: Cigarettes Alcohol Use: Occasionally Drug Use: Marijuana, Methamphetamine Adult General HPI HPI Patient is a 39-year-old male with a past medical history significant for schizophrenia, bipolar, anxiety and depression who is released from [facility] ago who presents today with a chief complaint of suicidal ideations. States that since getting out of group home 4 days ago he had a buildup of anxiety, depression and thoughts of committing suicide feeling that he would be better off if he was just . States he has had some alcohol and some methamphetamine. States he does not have an exact plan but has thought about many ways to over the last few days. States he tried calling [facility] and was supposed to go there but could not get a ride. States he comes in tonight to the emergency department with the hopes of being admitted to a psychiatric facility. Denies any recent travel, illnesses, fevers, chest pain, shortness of breath, a bdominal pain, nausea, vomiting. Review of Systems Review of Systems Review of systems otherwise unremarkable except noted in HPI Allergies Allergies Allergies Coded Allergies Type Severity Reaction Last Updated Verified chlorpromazine Allergy Intermediate 03/07/18 Yes haloperidol Allergy Intermediate Jaw movement. 06/08/14 Yes risperidone Allergy Intermediate 03/07/18 No sertraline Allergy Intermediate serotonin syndrome 06/08/14 Yes olanzapine Allergy Mild TIREDNESS 10/16/14 No Physical Exam Physical Exam Constitutional: Well developed, well nourished, no acute distress, non-toxic appearance. [] HENT: Normocephalic, atraumatic, bilateral external ears normal, oropharynx moist, no oral exudates, nose normal. [] Eyes: PERRLA,conjunctiva normal, no discharge. [] Neck: Normal range of motion, Cardiovascular: Sinus tachycardia Lungs & Thorax: Bilateral breath sounds clear to auscultation [] Abdomen: soft, no tenderness, no masses, no pulsatile masses. [] Skin: Warm, dry, no erythema, no rash. [] Back: No tenderness, Extremities: No tenderness, no cyanosis, no clubbing, ROM intact, no edema. [] Neurologic: Alert and oriented X 3, normal motor function, normal sensory function, no focal deficits noted. [] Psychologic: Patient appears anxious, almost tearful with feelings that he would be better off and thoughts of wanting to commit suicide but no exact plan. Denies any hallucinations or homicidal ideation. EKG EKG [] Radiology/Procedures Radiology/Procedures [] Heart Score C/O Chest Pain: No Risk Factors: Risk Factors: DM, Current or recent (<one month) smoker, HTN, HLP, family history of CAD, obesity. Risk Scores: Risk Factors: DM, Current or recent (<one month) smoker, HTN, HLP, family history of CAD, obesity. Course & Med Decision Making Course & Med Decision Making Patient is a 39-year-old male who presents with suicidal ideation Vital signs notable for tachycardia. Physical exam noted above. EKG noted above with sinus tachycardia. Laboratory analysis not concerning. Toxicology analysis notable for positive amphetamines/methamphetamines and urine ethanol. PAT team evaluated patient and felt he was appropriate for inpatient psychiatric admission. Discussed patient with [facility] who accepted patient for transfer. Discussed everything with patient, who verbalized understanding and agreed with plan of transfer and admission. [] Dragon Disclaimer Dragon Disclaimer This electronic medical record was generated, in whole or in part, using a voice recognition dictation system. Departure Departure: Impression: Primary Impression: Suicidal ideation Disposition: 65 DC/TRF TO PSYCH HOSP Condition: Referrals: PCP,NO (PCP) CURTIS COLÓN MD May 05, 2020 20:25
[2020-05-05 21:17] LABS: BASO # 0.1 x10^3/uL (0.0-0.2); BASO % 1 % (0-3); EOS # 0.3 x10^3/uL (0.0-0.7); EOS % 3 % (0-3); HEMATOCRIT 42.4 % (39.0-53.0); HEMOGLOBIN 14.4 g/dL (13.0-17.5); LYMPH # 2.6 x10^3/uL (1.0-4.8); LYMPH % 21 % (24-48); MEAN CORPUSCULAR HEMOGLOBIN 32 pg (25-35); MEAN CORPUSCULAR HGB CONC 34 g/dL (31-37); MEAN CORPUSCULAR VOLUME 95 fL (79-100); MONO # 0.8 x10^3/uL (0.0-1.1); MONO % 7 % (0-9); NEUT # 8.3 x10^3uL (1.8-7.7); NEUT % 69 % (31-73); PLATELET COUNT 230 x10^3/uL (140-400); RED BLOOD COUNT 4.48 x10^6/uL (4.30-5.70); RED CELL DISTRIBUTION WIDTH 12.2 % (11.5-14.5); WHITE BLOOD COUNT 12.1 x10^3/uL (4.0-11.0)
[2020-05-05 21:24] LABS: CALCIUM 9.1 mg/dL (8.5-10.1); GFR 83.2; POTASSIUM 3.7 mmol/L (3.5-5.1)
[2020-05-05 21:26] LABS: AMPHETAMINE/METHAMPHETAMINE POS (NEG); BARBITURATES NEG (NEG); BENZODIAZEPINES NEG (NEG); CANNABINOIDS POS (NEG); COCAINE NEG (NEG); METHADONE NEG (NEG); OPIATES NEG (NEG); PHENCYCLIDINE NEG (NEG)
[2020-05-05 21:37] LABS: ACETAMIN < 2 mcg/mL (10-30); ALBUMIN 3.9 g/dL (3.4-5.0); ALBUMIN/GLOBULIN RATIO 1.1 (1.0-1.7); ETHANOL < 10 mg/dL (0-10); TOTAL BILIRUBIN 0.4 mg/dL (0.2-1.0); TOTAL PROTEIN 7.3 g/dL (6.4-8.2)
[2020-05-05] MEDS ORDERED: IV RINGERS SOLUTION,LACTATED 1,000 ML IV ONE (23:00)
--- NOTE | 2020-05-06 00:30 | EKG ---
[address] [address] Test Date: 2020-05-05 Test Time: 22:58:38 Pat Name: JI LORENZO Department: Room: Gender: Marketing Development Specialist: RUBY : 1980 Requested By: CURTIS COLÓN Order Number: [id number] Reading MD: Measurements Intervals [place] Rate: 119 P: 31 PA: 140 QRS: 36 QRSD: 68 T: 28 QT: 292 QTc: 411 Interpretive Statements SINUS TACHYCARDIA OTHERWISE NORMAL ECG RI6.02 No previous ECG available for comparison
== END 2020-05-06 02:28 ==
LOC: ER 20:16
DX: R45.851 Suicidal ideations (principal); F20.9 Schizophrenia, unspecified; F31.9 Bipolar disorder, unspecified; F41.9 Anxiety disorder, unspecified; F17.210 Nicotine dependence, cigarettes, uncomplicated; Z20.822 Contact with and (suspected) exposure to COVID-19; Z88.8 Allergy status to other drugs, medicaments and biological substances; Z79.899 Other long term (current) drug therapy
CPT/HCPCS: 36415; 80053; 80307; 80329; 85025; 87426; 93005; 99285; C9803; G0480; U0003

== ENCOUNTER 2020-09-14 12:22 | Emergency (ER) | payer MEDICARE ==
[~2020-09-14] VITALS: Ht 180.3 cm; Wt 95.5 kg
--- NOTE | 2020-09-14 13:16 | EKG ---
[address] [address] Test Date: 2020-09-14 Test Time: 12:59:48 Pat Name: JI LORENZO Department: Room: Gender: Membership Solicitor: ALAN : 1980 Requested By: LUIS EDUARDO RUIZ Order Number: [id number] Reading MD: Measurements Intervals [place] Rate: 60 P: 41 UT: 154 QRS: 26 QRSD: 80 T: 24 QT: 372 QTc: 376 Interpretive Statements SINUS RHYTHM NORMAL ECG RI6.02 No previous ECG available for comparison
--- NOTE | 2020-09-14 13:27 | PHYS DOC ---
Past History Past Medical History: Anxiety, Bipolar, Depression, Glaucoma, Schizophrenia Past Surgical History: No Surgical History Smoking: Cigarettes Alcohol Use: Heavy Drug Use: Marijuana, Methamphetamine General Adult EDM: Chief Complaint: SUICIDAL IDEATION HPI: HPI: Patient is a 39-year-old male who presents with SI. Patient states he has had multiple attempts in the past. Patient states he did not attempt to kill himself last night but he did hang and noose in the garage. Patient reports using marijuana and methamphetamines a few days ago. History of schizophrenia, anxiety, depression. Review of Systems: Review of Systems: Constitutional: Denies fever or chills Eyes: Denies change in visual acuity HENT: Denies nasal congestion or sore throat Respiratory: Denies cough or shortness of breath Cardiovascular: Denies chest pain or edema GI: Denies abdominal pain, nausea, vomiting, bloody stools or diarrhea : Denies dysuria Musculoskeletal: Denies back pain or joint pain Integument: Denies rash Neurologic: Denies headache, focal weakness or sensory changes Endocrine: Denies polyuria or polydipsia Lymphatic: Denies swollen glands Psychiatric: Ports anxiety and depression Allergies: Allergies: Allergies Coded Allergies Type Severity Reaction Last Updated Verified chlorpromazine Allergy Intermediate 03/07/18 Yes haloperidol Allergy Intermediate Jaw movement. 06/08/14 Yes risperidone Allergy Intermediate 03/07/18 No sertraline Allergy Intermediate serotonin syndrome 06/08/14 Yes olanzapine Allergy Mild TIREDNESS 10/16/14 No Physical Exam: PE: Constitutional: Well developed, well nourished, no acute distress, non-toxic appearance. [] HENT: Normocephalic, atraumatic, bilateral external ears normal, oropharynx moist, no oral exudates, nose normal. [] Eyes: PERRLA, EOMI, conjunctiva normal, no discharge. [] Neck: Normal range of motion, no tenderness, supple, no stridor. [] Cardiovascular:Heart rate regular rhythm, no murmur [] Lungs & Thorax: Bilateral breath sounds clear to auscultation [] Abdomen: Bowel sounds normal, soft, no tenderness, no masses, no pulsatile masses. [] Skin: Warm, dry, no erythema, no rash. [] Back: No tenderness, no CVA tenderness. [] Extremities: No tenderness, no cyanosis, no clubbing, ROM intact, no edema. [] Neurologic: Alert and oriented X 3, normal motor function, normal sensory function, no focal deficits noted. [] Psychologic: Judgment abnormal, depressed mood Current Patient Data: Vital Signs: Vital Signs Date Time Temp Pulse Resp B/P (MAP) Pulse Ox O2 Delivery O2 Flow Rate FiO2 09/14/20 12:42 97.7 73 20 163/100 97 Room Air EKG: EKG: [] Sinus rhythm. Heart rate 60 bpm. Radiology/Procedures: Radiology/Procedures: [] Heart Score: C/O Chest Pain: No Risk Factors: Risk Factors: DM, Current or recent (<one month) smoker, HTN, HLP, family history of CAD, obesity. Risk Scores: Score 0 - 3: 2.5% MACE over next 6 weeks - Discharge Home Score 4 - 6: 20.3% MACE over next 6 weeks - Admit for Clinical Observation Score 7 - 10: 72.7% MACE over next 6 weeks - Early Invasive Strategies Course & Med Decision Making: Course & Med Decision Making Pertinent Labs and Imaging studies reviewed. (See chart for details) [] 39-year-old male presents with SI. Patient denies any attempts but did hang a noose last night in his grandparents garage. Patient states that he has had a previous history of SI attempts but lately the desire has gotten worse. Patient was recently at [facility] and is requesting he be placed there again. Patient reports he used methamphetamines and marijuana 3 days ago. Denies HI. Patient has history of schizophrenia, bipolar, anxiety and depression. PAT team was consulted. EKG, UDS, basic labs, Covid ordered. All labs unremarkable. UDS positive for marijuana. Covid test is negative. EKG shows sinus rhythm, heart rate [address] elevation or depression. Patient has been accepted at [facility]. Patient will be transferred by EMS. Informed patient placement. Dragon Disclaimer: Tawana Disclaimer: This electronic medical record was generated, in whole or in part, using a voice recognition dictation system. Departure Departure: Impression: Primary Impression: Suicidal ideation Additional Impression: Schizophrenia Qualified Codes: F20.9 - Schizophrenia, unspecified Disposition: 02 SHORT TERM HOSPITAL Condition: STABLE Referrals: PCP,NO (PCP) LUIS EDUARDO RUIZ APRN Sep 14, 2020 13:27
[2020-09-14 13:33] LABS: BASO # 0.1 x10^3/uL (0.0-0.2); BASO % 1 % (0-3); EOS # 0.5 x10^3/uL (0.0-0.7); EOS % 4 % (0-3); HEMATOCRIT 48.5 % (39.0-53.0); HEMOGLOBIN 16.5 g/dL (13.0-17.5); LYMPH # 2.4 x10^3/uL (1.0-4.8); LYMPH % 17 % (24-48); MEAN CORPUSCULAR HEMOGLOBIN 34 pg (25-35); MEAN CORPUSCULAR HGB CONC 34 g/dL (31-37); MEAN CORPUSCULAR VOLUME 99 fL (79-100); MONO % 7 % (0-9); NEUT % 71 % (31-73); PLATELET COUNT 256 x10^3/uL (140-400); RED BLOOD COUNT 4.92 x10^6/uL (4.30-5.70); WHITE BLOOD COUNT 14.1 x10^3/uL (4.0-11.0)
[2020-09-14 13:39] LABS: CALCIUM 9.1 mg/dL (8.5-10.1); CREATININE 1.1 mg/dL (0.7-1.3); GFR 74.5; POTASSIUM 4.6 mmol/L (3.5-5.1)
[2020-09-14 13:49] LABS: BARBITURATES NEG (NEG); BENZODIAZEPINES NEG (NEG); CANNABINOIDS POS (NEG); COCAINE NEG (NEG); METHADONE NEG (NEG); OPIATES NEG (NEG); PHENCYCLIDINE NEG (NEG)
[2020-09-14 13:52] LABS: AMPHETAMINE/METHAMPHETAMINE NEG (NEG)
[2020-09-14 14:10] LABS: BILIRUBIN,URINE NEG (NEG); CLARITY,URINE CLEAR; COLOR,URINE YELLOW; GLUCOSE,URINE NEG (NEG); NITRITE,URINE NEG (NEG); UROBILINOGEN,URINE 0.2 mg/dL (0.2 mg/dL)
[2020-09-14 14:11] LABS: BACTERIA,URINE 0 /HPF (0-FEW); RBC,URINE OCC /HPF (0-2); SQUAMOUS EPITHELIAL CELL,UR FEW /LPF
[2020-09-14 16:58] VITALS: BP 113/77
== END 2020-09-14 19:46 | disposition short-term general hospital (02) ==
LOC: ER 12:22
DX: R45.851 Suicidal ideations (principal); F41.9 Anxiety disorder, unspecified; F31.9 Bipolar disorder, unspecified; F20.9 Schizophrenia, unspecified; F12.10 Cannabis abuse, uncomplicated; F15.10 Other stimulant abuse, uncomplicated; Z88.6 Allergy status to analgesic agent; Z88.8 Allergy status to other drugs, medicaments and biological substances; Z20.822 Contact with and (suspected) exposure to COVID-19
CPT/HCPCS: 36415; 80048; 80307; 81001; 85025; 87426; 93005; 99285; C9803; U0003

== ENCOUNTER 2020-12-25 18:21 | Emergency (ER) | payer MEDICARE, OTHER ==
[~2020-12-25] VITALS: Ht 180.3 cm; Wt 95.5 kg
--- NOTE | 2020-12-25 18:33 | PHYS DOC ---
Past History Past Medical History: Anxiety, Bipolar, Depression, Glaucoma, Schizophrenia (CURTIS COLÓN MD) Past Surgical History: No Surgical History (CURTIS COLÓN MD) Smoking: Cigarettes Alcohol Use: Occasionally Drug Use: Marijuana, Methamphetamine (CURTIS COLÓN MD) Adult General HPI HPI Patient is a 40-year-old male who presents to the emergency department with a chief complaint of suicidal ideation with a plan. Patient states that he does not follow with any psychiatrist or psychologist and states that his brother killed himself 2 years ago when his grandfather recently and he is currently homeless. States he has been thinking about causing him self-harm by hanging himself or taking an overdose. States he wants to get some help, and would prefer to be admitted inpatient to see if he needs any medications. Denies any homicidal ideation or hallucinations. Denies any alcohol or drug use. (CURTIS COLÓN MD) Review of Systems Review of Systems Review of systems otherwise unremarkable except noted in HPI (CURTIS COLÓN MD) Allergies Allergies Allergies Coded Allergies Type Severity Reaction Last Updated Verified chlorpromazine Allergy Intermediate 03/07/18 Yes haloperidol Allergy Intermediate Jaw movement. 06/08/14 Yes risperidone Allergy Intermediate 03/07/18 No sertraline Allergy Intermediate serotonin syndrome 06/08/14 Yes olanzapine Allergy Mild TIREDNESS 10/16/14 No (CURTIS COLÓN MD) Physical Exam Physical Exam Constitutional: Well developed, well nourished, no acute distress, non-toxic appearance. [] HENT: Normocephalic, atraumatic, bilateral external ears normal, oropharynx esau st, no oral exudates, nose normal. [] Eyes: PERRLA, EOMI, conjunctiva normal, no discharge. [] Neck: Normal range of motion, no tenderness, supple, no stridor. [] Cardiovascular:Heart rate regular rhythm, no murmur [] Lungs & Thorax: Bilateral breath sounds clear to auscultation [] Abdomen: Bowel sounds normal, soft, no tenderness, no masses, no pulsatile masses. [] Skin: Warm, dry, no erythema, no rash. [] Back: No tenderness, no CVA tenderness. [] Extremities: No tenderness, no cyanosis, no clubbing, ROM intact, no edema. [] Neurologic: Alert and oriented X 3, normal motor function, normal sensory function, no focal deficits noted. [] Psychologic: Affect normal, judgment abnormal, mood depressed, suicidal ideation with a plan of either hanging himself or taking an overdose as he has done that before, but no homicidal ideation and no hallucinations. [] (CURTIS COLÓN MD) EKG EKG [] (CURTIS COLÓN MD) Radiology/Procedures Radiology/Procedures [] (CURTIS COLÓN MD) Heart Score C/O Chest Pain: No Risk Factors: Risk Factors: DM, Current or recent (<one month) smoker, HTN, HLP, family history of CAD, obesity. Risk Scores: Risk Factors: DM, Current or recent (<one month) smoker, HTN, HLP, family history of CAD, obesity. (CURTIS COLÓN MD) Course & Med Decision Making Course & Med Decision Making Patient is a 40-year-old male who presents to the emergency department with a chief complaint of suicidal ideation Vital signs not concerning. Physical exam noted above. Patient denies need for any pain or nausea medicine. Psychiatric assessment team liaison met with patient and felt he was appropriate for inpatient evaluation and treatment given ideation and plan and previous attempts with current life stresses. Discussed all these findings with patient. Patient verbalized understanding and agreed with plan of admission. Laboratory analysis not concerning. Toxicology not concerning. Initial Covid negative. Psychiatric assessment team liaison was unable to get patient into [facility] who accepts rapid Covid test and patient had to stay the night in the emergency department until PCR Covid returns in the morning and is negative for reevaluation and placement by PAT steam fitter. Patient care handed off to day team. (CURTIS COLÓN MD) Course & Med Decision Making I assumed care of patient after comprehensive signout from off going physician. Patient remains medically stable and cleared for transport to inpatient psych facility. Still pending inpatient psych facility transfer Finally received acceptance for patient transfer to [facility] under the care of Dr. Pierson. Patient notified and remained amenable to plan of care that included hospital transfer for inpatient psychiatric evaluation and continued care. All questions and concerns addressed prior to EMS transfer (OREN DUNBAR DO) Dragon Disclaimer Dragon Disclaimer This electronic medical record was generated, in whole or in part, using a voice recognition dictation system. (CURTIS COLÓN MD) Departure Departure: Impression: Primary Impression: Suicidal ideation [facility] Condition: GOOD Referrals: PCP,NO (PCP) CURTIS COLÓN MD Dec 25, 2020 18:33 OREN DUNBAR DO Dec 26, 2020 15:33
[2020-12-25 19:20] LABS: BARBITURATES NEG (NEG); BENZODIAZEPINES NEG (NEG); CANNABINOIDS NEG (NEG); COCAINE NEG (NEG); METHADONE NEG (NEG); OPIATES NEG (NEG); PHENCYCLIDINE NEG (NEG)
[2020-12-25 19:21] LABS: AMPHETAMINE/METHAMPHETAMINE NEG (NEG)
[2020-12-25 19:29] LABS: BACTERIA,URINE 0 /HPF (0-FEW); BILIRUBIN,URINE NEG (NEG); CLARITY,URINE CLEAR; COLOR,URINE YELLOW; GLUCOSE,URINE NEG (NEG); NITRITE,URINE NEG (NEG); RBC,URINE 0 /HPF (0-2); UROBILINOGEN,URINE 0.2 mg/dL (0.2 mg/dL); WBC,URINE 0 /HPF (0-4)
[2020-12-25 19:39] LABS: BASO # 0.1 x10^3/uL (0.0-0.2); BASO % 1 % (0-3); EOS # 0.8 x10^3/uL (0.0-0.7); EOS % 7 % (0-3); HEMATOCRIT 48.8 % (39.0-53.0); HEMOGLOBIN 16.4 g/dL (13.0-17.5); LYMPH # 3.9 x10^3/uL (1.0-4.8); LYMPH % 36 % (24-48); MEAN CORPUSCULAR HEMOGLOBIN 33 pg (25-35); MEAN CORPUSCULAR HGB CONC 34 g/dL (31-37); MEAN CORPUSCULAR VOLUME 99 fL (79-100); MONO # 0.9 x10^3/uL (0.0-1.1); MONO % 8 % (0-9); NEUT % 47 % (31-73); PLATELET COUNT 248 x10^3/uL (140-400); RED BLOOD COUNT 4.92 x10^6/uL (4.30-5.70); RED CELL DISTRIBUTION WIDTH 13.7 % (11.5-14.5); WHITE BLOOD COUNT 10.6 x10^3/uL (4.0-11.0)
[2020-12-25 19:46] LABS: CALCIUM 9.2 mg/dL (8.5-10.1); CREATININE 0.9 mg/dL (0.7-1.3); GFR 93.5; POTASSIUM 4.6 mmol/L (3.5-5.1)
[2020-12-25 19:54] LABS: ACETAMIN < 2.0 mcg/mL (10-30); ETHANOL < 10 mg/dL (0-10); SALIC 4.5 mg/dL (2.8-20.0)
--- NOTE | 2020-12-25 22:05 | EKG ---
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
[2020-12-26] MEDS ORDERED: NICOTINE 21MG PATCH. TD ONE (09:15)
[2020-12-26 14:00] VITALS: BP 126/87
== END 2020-12-26 17:31 ==
LOC: ER 18:21
DX: R45.851 Suicidal ideations (principal); F41.9 Anxiety disorder, unspecified; F31.9 Bipolar disorder, unspecified; F20.9 Schizophrenia, unspecified; F17.210 Nicotine dependence, cigarettes, uncomplicated; Z20.822 Contact with and (suspected) exposure to COVID-19; Z88.8 Allergy status to other drugs, medicaments and biological substances
CPT/HCPCS: 36415; 80048; 80307; 80329; 81001; 85025; 87426; 93005; 99285; G0480; U0003

== ENCOUNTER 2021-01-07 13:03 | Emergency (ER) | payer MEDICARE, OTHER ==
[~2021-01-07] VITALS: Ht 180.3 cm; Wt 93.3 kg
[2021-01-07 13:03] VITALS: BP 141/75
[2021-01-07 14:14] LABS: BASO # 0.2 x10^3/uL (0.0-0.2); BASO % 2 % (0-3); EOS # 0.6 x10^3/uL (0.0-0.7); EOS % 4 % (0-3); HEMATOCRIT 42.7 % (39.0-53.0); HEMOGLOBIN 14.4 g/dL (13.0-17.5); LYMPH # 3.1 x10^3/uL (1.0-4.8); LYMPH % 21 % (24-48); MEAN CORPUSCULAR HEMOGLOBIN 33 pg (25-35); MEAN CORPUSCULAR HGB CONC 34 g/dL (31-37); MEAN CORPUSCULAR VOLUME 97 fL (79-100); MONO # 0.9 x10^3/uL (0.0-1.1); MONO % 6 % (0-9); NEUT # 9.7 x10^3uL (1.8-7.7); NEUT % 67 % (31-73); PLATELET COUNT 293 x10^3/uL (140-400); RED BLOOD COUNT 4.38 x10^6/uL (4.30-5.70); RED CELL DISTRIBUTION WIDTH 13.4 % (11.5-14.5); WHITE BLOOD COUNT 14.5 x10^3/uL (4.0-11.0)
[2021-01-07 14:14] LABS: CALCIUM 8.7 mg/dL (8.5-10.1); CREATININE 0.8 mg/dL (0.7-1.3); GFR 107.1; POTASSIUM 4.6 mmol/L (3.5-5.1)
--- NOTE | 2021-01-07 14:41 | PHYS DOC ---
Past History Past Medical History: Anxiety, Bipolar, Depression, Glaucoma, Schizophrenia Additional Past Medical Histor: schizoaffective disorder (LUIS EDUARDO RUIZ APRN) Past Surgical History: No Surgical History (LUIS EDUARDO RUIZ APRN) Smoking: Cigarettes Alcohol Use: Occasionally Drug Use: Marijuana, Methamphetamine (LUIS EDUARDO RUIZ APRN) General Adult EDM: Chief Complaint: SUICIDAL IDEATION HPI: HPI: Patient is a 40-year-old male who presents with suicidal ideation. Patient states that on Wednesday he relapsed and used alcohol and methamphetamines. Patient states he was [facility] at the [facility] and [facility] sent him to the emergency room since he was reporting he wanted to harm himself. Patient denies having a plan. Patient's history of anxiety, depression, schizophrenia. (LUIS EDUARDO RUIZ APRN) Review of Systems: Review of Systems: ROS At least 10 ROS systems have been reviewed and are negative except as documented in the HPI. General: Negative except as outlined in HPI above. Skin: Negative except as outlined in HPI above. HEENT: Negative except as outlined in HPI above. Neck: Negative except as outlined in HPI above. Respiratory: Negative except as outlined in HPI above.. Cardiovascular: Negative except as outlined in HPI above. Abdomen: Negative except as outlined in HPI above. : Negative except as outlined in HPI above. Back/MSK: Negative except as outlined in HPI above. Neuro: Negative except as outlined in HPI above. Psych: Negative except as outlined in HPI above. (LUIS EDUARDO RUIZ APRN) Allergies: Allergies: Allergies Coded Allergies Type Severity Reaction Last Updated Verified chlorpromazine Allergy Intermediate 03/07/18 Yes haloperidol Allergy Intermediate Jaw movement. 06/08/14 Yes risperidone Allergy Intermediate 03/07/18 No sertraline Allergy Intermediate serotonin syndrome 06/08/14 Yes olanzapine Allergy Mild TIREDNESS 10/16/14 No (LUIS EDUARDO RUIZ CHILD AND FAMILY THERAPIST) Physical Exam: PE: Constitutional: Well developed, well nourished, no acute distress, non-toxic appearance. [] HENT: Normocephalic, atraumatic, bilateral external ears normal, oropharynx mo ist, no oral exudates, nose normal. [] Eyes: PERRLA, EOMI, conjunctiva normal, no discharge. [] Neck: Normal range of motion, no tenderness, supple, no stridor. [] Cardiovascular:Heart rate regular rhythm, no murmur [] Lungs & Thorax: Bilateral breath sounds clear to auscultation [] Abdomen: Bowel sounds normal, soft, no tenderness, no masses, no pulsatile masses. [] Skin: Warm, dry, no erythema, no rash. [] Back: No tenderness, no CVA tenderness. [] Extremities: No tenderness, no cyanosis, no clubbing, ROM intact, no edema. [] Neurologic: Alert and oriented X 3, normal motor function, normal sensory function, no focal deficits noted. [] Psychologic: Anxious affect, abnormal judgment (LUIS EDUARDO RUIZ APRN) Current Patient Data: Labs: Laboratory Tests Test 01/07/21 13:52 01/07/21 13:57 Sodium Level 140 mmol/L (136-145) Potassium Level 4.6 mmol/L (3.5-5.1) Chloride Level 105 mmol/L (98-107) Carbon Dioxide Level 25 mmol/L (21-32) Anion Gap 10 (6-14) Blood Urea Nitrogen 13 mg/dL (8-26) Creatinine 0.8 mg/dL (0.7-1.3) Estimated GFR (Cockcroft-Gault) 107.1 Glucose Level 84 mg/dL (70-99) Calcium Level 8.7 mg/dL (8.5-10.1) Ethyl Alcohol Level < 10 mg/dL (0-10) White Blood Count 14.5 x10^3/uL (4.0-11.0) H Red Blood Count 4.38 x10^6/uL (4.30-5.70) Hemoglobin 14.4 g/dL (13.0-17.5) Hematocrit 42.7 % (39.0-53.0) Mean Corpuscular Volume 97 fL (79-100) Mean Corpuscular Hemoglobin 33 pg (25-35) Mean Corpuscular Hemoglobin Concent 34 g/dL (31-37) Red Cell Distribution Width 13.4 % (11.5-14.5) Platelet Count 293 x10^3/uL (140-400) Neutrophils (%) (Auto) 67 % (31-73) Lymphocytes (%) (Auto) 21 % (24-48) L Monocytes (%) (Auto) 6 % (0-9) Eosinophils (%) (Auto) 4 % (0-3) H Basophils (%) (Auto) 2 % (0-3) Neutrophils # (Auto) 9.7 x10^3uL (1.8-7.7) H Lymphocytes # (Auto) 3.1 x10^3/uL (1.0-4.8) Monocytes # (Auto) 0.9 x10^3/uL (0.0-1.1) Eosinophils # (Auto) 0.6 x10^3/uL (0.0-0.7) Basophils # (Auto) 0.2 x10^3/uL (0.0-0.2) (LUIS EDUARDO RUIZ APRN) EKG: EKG: [] (LUIS EDUARDO RUIZ APRN) Radiology/Procedures: Radiology/Procedures: [] (LUIS EDUARDO RUIZ APRN) Heart Score: C/O Chest Pain: No Risk Factors: Risk Factors: DM, Current or recent (<one month) smoker, HTN, HLP, family history of CAD, obesity. Risk Scores: Score 0 - 3: 2.5% MACE over next 6 weeks - Discharge Home Score 4 - 6: 20.3% MACE over next 6 weeks - Admit for Clinical Observation Score 7 - 10: 72.7% MACE over next 6 weeks - Early Invasive Strategies (LUIS EDUARDO RUIZ APRN) Course & Med Decision Making: Course & Med Decision Making Pertinent Labs and Imaging studies reviewed. (See chart for details) [] 40-year-old male presents with suicidal ideation. Patient is requesting rehab and wants to be inpatient for SI. Denies HI. Work-up in ER consisted of basic labs, UA, drug screen, PAT consult. All labs unremarkable. Drug screen positive for methamphetamines and marijuana. PAT team consulted with patient. Patient is still reporting suicidal ideation and requesting rehab. Patient will be admitted to [facility] for detox and SI. Patient is happy with admission plan. Hemodynamically stable upon disposition. (LUIS EDUARDO RUIZ APRN) Course & Med Decision Making I was the Attending physician on the above date of service of this patient. This patient was evaluated, examined, treated, and dispositioned from the emergency department by the mid-level practitioner. Although I was working at the time , no assistance was requested. Electronically signed, Oren Dunbar DO (OREN DUNBAR DO) Dragon Disclaimer: T[place]ana Disclaimer: This electronic medical record was generated, in whole or in part, using a voice recognition dictation system. (LUIS EDUARDO RUIZ APRN) Departure Departure: Impression: Primary Impression: Suicidal ideation Disposition: 01 HOME / SELF CARE / HOMELESS Condition: STABLE Referrals: PCP,NO (PCP) Patient Instructions: Suicidal Feelings, How to Help Yourself Additional Instructions: EMERGENCY DEPARTMENT GENERAL DISCHARGE INSTRUCTIONS Thank you for coming to [facility] (ED) today and trusting us with you care. We trust that you had a positivie experience in our Emergency Department. If you wish to speak to the department management, you may call the director at [phone]. YOUR FOLLOW UP INSTRUCTIONS ARE FOLLOWS: 1. Do you have a private Doctor? If you do not have a private doctor, please ask for a resource list of physicians or clinics that may be able to assist you with follow up care. 2. The Emergency Physician has interpreted your x-rays. The X-Ray specialist will also review them. If there is a change in the findings, you will be notified in 48 hours when at all possible. 3. A lab test or culture has been done, your results will be reviewed and you will be notified if you need a change in treatment. ADDITIONAL INSTRUCTIONS AND INFORMATION: 1. Your care today has been supervised by a physician who is specially trained in emergency care. Many problems require more than one evaluation for a complete diagnosis and treatment. We recommend that you schedule your follow up appointment as recommended to ensure complete treatment of you illness or injury. If you are unable to obtain follow up care and continue to have a problem, or if your condition worsens, we recommend that you return to the ED. 2. We are not able to safely determine your condition over the phone nor are we able to give sound medical advice over the phone. For these safety reasons, if you call for medical advice we will ask you to come to the ED for further evaluation. 3. If you have any questions regarding these discharge instructions please call the ED at [phone]. SAFETY INFORMATION: In the interest of safety, wellness, and injury prevention; we encourage you to wear your sealbelt, if you smoke; quite smoking, and we encourage family to use a protective helmet for bicycling and other sporting events that present an increased risk for head injury. IF YOUR SYMPTOMS WORSEN OR NEW SYMPTOMS DEVELOP, OR YOU HAVE CONCERNS ABOUT YOUR CONDITION; OR IF YOUR CONDITION WORSENS WHILE YOU ARE WAITING FOR YOUR FOLLOW UP APPOINTMENT; EITHER CONTACT YOUR PRIMARY CARE DOCTOR, THE PHYSICIAN WHOSE NAME AND NUMBER YOU WERE GIVEN, OR RETURN TO THE ED IMMEDIATELY. LUIS EDUARDO RUIZ APRN Jan 07, 2021 14:41 OREN DUNBAR DO Jan 11, 2021 07:49
[2021-01-07] MEDS: IV NORMAL SALINE 1,000ML 1,000 ML IV ONE (17:04)
[2021-01-07 18:37] LABS: BARBITURATES NEG (NEG); BENZODIAZEPINES NEG (NEG); CANNABINOIDS POS (NEG); COCAINE NEG (NEG); METHADONE NEG (NEG); OPIATES NEG (NEG); PHENCYCLIDINE NEG (NEG)
[2021-01-07 18:38] LABS: AMPHETAMINE/METHAMPHETAMINE POS (NEG)
[2021-01-07 18:44] LABS: BACTERIA,URINE 0 /HPF (0-FEW); BILIRUBIN,URINE SMALL (NEG); CLARITY,URINE CLEAR; COLOR,URINE YELLOW; GLUCOSE,URINE NEG (NEG); NITRITE,URINE NEG (NEG); RBC,URINE 0 /HPF (0-2); WBC,URINE 0 /HPF (0-4)
--- NOTE | 2021-01-11 09:41 | NUR ---
Patients mother notified of covid results
== END 2021-01-07 19:50 | disposition home or self-care (01) ==
LOC: ER 13:12
DX: R45.851 Suicidal ideations (principal); F41.9 Anxiety disorder, unspecified; F31.9 Bipolar disorder, unspecified; F20.9 Schizophrenia, unspecified; F17.210 Nicotine dependence, cigarettes, uncomplicated; F12.10 Cannabis abuse, uncomplicated; F15.10 Other stimulant abuse, uncomplicated; Z20.822 Contact with and (suspected) exposure to COVID-19; Z88.8 Allergy status to other drugs, medicaments and biological substances
CPT/HCPCS: 36415; 80048; 80307; 81001; 85025; 87426; 96360; 99285; C9803; G0480; J7030; U0003; 99283

== ENCOUNTER 2021-05-13 13:45 | Emergency (ER) | payer OTHER ==
[~2021-05-13] VITALS: Ht 180.3 cm; Wt 98.2 kg
[~2021-05-13 13:45] MED LIST changes: -LURA40TA PO; +LURA40TA2 PO; -LURA80TA PO; +LURA80TA2 PO
[2021-05-13 13:50] VITALS: BP 142/96
[2021-05-13] MEDS ORDERED: HYDR-2155 PO (14:19)
[2021-05-13] MEDS ORDERED: AMOX1TAB61 PO (14:19)
--- NOTE | 2021-05-13 14:20 | PHYS DOC ---
Past History Past Medical History: Anxiety, Bipolar, Depression, Glaucoma, Schizophrenia Additional Past Medical Histor: schizoaffective disorder Past Surgical History: No Surgical History, Other Additional Past Surgical Histo: ORIF right ankle Smoking: Cigarettes Alcohol Use: Occasionally Drug Use: Marijuana, Methamphetamine General Adult EDM: Chief Complaint: DENTAL PROBLEM HPI: HPI: Patient is a 40 male who presents to the emergency department today for dental pain. Patient reports that he has had dental pain over the last month but is worsened over the last week. He reports he has been gargling with peroxide. He reports that his mother gave him a pain pill of hers today and she also gave him a crown oil. Patient does not have a dentist. Patient rates his pain 6 out of 10. Patient denies nausea, vomiting, difficulty swallowing or breathing, fevers. Review of Systems: Review of Systems: Constitutional: See HPI HENT: See HPI Respiratory: See HPI GI: See HPI Allergies: Allergies: Allergies Coded Allergies Type Severity Reaction Last Updated Verified chlorpromazine Allergy Intermediate 03/07/18 Yes haloperidol Allergy Intermediate Jaw movement. 06/08/14 Yes risperidone Allergy Intermediate 03/07/18 No sertraline Allergy Intermediate serotonin syndrome 06/08/14 Yes olanzapine Allergy Mild TIREDNESS 10/16/14 No Physical Exam: PE: Constitutional: Well developed, well nourished, no acute distress, non-toxic a ppearance. [] HENT: Normocephalic, atraumatic, bilateral external ears normal, patient has several areas of dental decay, no visible abscess, uvula midline, no trismus, no phonation changes, patient maintaining secretions, oropharynx moist, no oral exudates, nose normal. [] Eyes: PERRL, EOMI, conjunctiva normal, no discharge. [] Neck: Normal range of motion, no tenderness, supple, no stridor. [] Cardiovascular:Heart rate regular rhythm, no murmur [] Lungs & Thorax: Bilateral breath sounds clear to auscultation [] Abdomen: Soft and flat Skin: Warm, dry, no erythema, no rash. [] Back: Full range of motion Extremities: No tenderness, no cyanosis, no clubbing, ROM intact, no edema. [] Neurologic: Alert and oriented X 3, normal motor function, normal sensory function, no focal deficits noted. [] Psychologic: Affect normal, judgement normal, mood normal. [] Current Patient Data: Vital Signs: Vital Signs Date Time Temp Pulse Resp B/P (MAP) Pulse Ox O2 Delivery O2 Flow Rate FiO2 05/13/21 13:50 98.2 96 16 142/96 (111) 100 Room Air EKG: EKG: [] Radiology/Procedures: Radiology/Procedures: [] Heart Score: C/O Chest Pain: N/A Risk Factors: Risk Factors: DM, Current or recent (<one month) smoker, HTN, HLP, family history of CAD, obesity. Risk Scores: Score 0 - 3: 2.5% MACE over next 6 weeks - Discharge Home Score 4 - 6: 20.3% MACE over next 6 weeks - Admit for Clinical Observation Score 7 - 10: 72.7% MACE over next 6 weeks - Early Invasive Strategies Course & Med Decision Making: Course & Med Decision Making Pertinent Labs and Imaging studies reviewed. (See chart for details) [] Patient presents to the emergency department for dental pain. Patient has multiple areas of dental caries and decay. Patient will be treated with an antibiotic and he will also be discharged home with some pain medication. He is advised to follow-up with a dentist and he was given dental clinic list. His vital signs are stable. I discussed with patient all findings and diagnostic testing as well as the need to follow-up with PCP for further evaluation and treatment or return to the ER if any new or worsening symptoms. Strict return precautions were also discussed at length. Patient voiced understanding and agreement with the plan. Patient is hemodynamically stable at the time of disposition. Dragon Disclaimer: Dragon Disclaimer: This electronic medical record was generated, in whole or in part, using a voice recognition dictation system. Departure Departure: Impression: Primary Impression: Pain due to dental caries Disposition: HOME / SELF CARE / HOMELESS Condition: GOOD Referrals: RENETTA MEYERS MD (PCP) Patient Instructions: Dental Abscess Additional Instructions: You were seen in the emergency department today for dental pain. You are being discharged home with an antibiotic and pain medication. Please make sure they start and finish the antibiotic completely. This pain medication has hydrocodone and Tylenol combination tablet. Do not take any additional Tylenol with this medication. This medication may cause sedation so do not take need to be alert, driving a vehicle with alcohol. Follow-up with one of the dentist provided on your list. Return to the emergency department if you develop worsening of your pain, high fevers refractory to treatment, intractable nausea or vomiting, difficulty maintaining your secretions and swallowing. Scripts Hydrocodone Bit/Acetaminophen (HYDROCODONE-APAP 5-325 ) 1 Each Tablet 1 TAB PO PRN Q6HRS PRN for PAIN for 2 Days, #8 TAB 0 Refills Prov: JASMIN NAVARRETE APRN 05/13/21 Amoxicillin/Potassium Clav (AUGMENTIN 875-125 TABLET) 1 Each Tablet 1 TAB PO BID for infection for 10 Days, #20 TAB 0 Refills Prov: JASMIN NAVARRETE APRN 05/13/21 JASMIN NAVARRETE APRN May 13, 2021 14:20
== END 2021-05-13 15:00 | disposition home or self-care (01) ==
LOC: ER 13:45
DX: K02.9 Dental caries, unspecified (principal); F20.9 Schizophrenia, unspecified; F31.9 Bipolar disorder, unspecified; F17.210 Nicotine dependence, cigarettes, uncomplicated; Z88.8 Allergy status to other drugs, medicaments and biological substances
CPT/HCPCS: 99283

== ENCOUNTER 2021-06-26 20:22 | Emergency (ER) | payer OTHER ==
[~2021-06-26] VITALS: Ht 180.3 cm; Wt 98.2 kg
[~2021-06-26 20:22] MED LIST changes: +AMOX1TAB61 PO; +HYDR-2155 PO
--- NOTE | 2021-06-26 20:33 | PHYS DOC ---
Past History Past Medical History: Anxiety, Bipolar, Depression, Glaucoma, Schizophrenia Additional Past Medical Histor: schizoaffective disorder (DARWIN ADAME MD) Past Surgical History: No Surgical History, Other Additional Past Surgical Histo: ORIF right ankle (DARWIN ADAME MD) Smoking: Cigarettes Alcohol Use: Occasionally Drug Use: Marijuana, Methamphetamine (DARWIN ADAME MD) General Adult EDM: Chief Complaint: SUICIDAL IDEATION HPI: HPI: Patient is a 40 year old male who presents with above hx and complaints of suicidal ideation. (DARWIN ADAME MD) HPI: Patient is a 40-year-old male who presents to the emergency department today for suicidal ideation with a plan. Patient reports that his plan is to hang himself. He has a history of bipolar and schizoaffective disorder. He reports being on Geodon but then he started getting lockjaw so they discontinued the Geodon and started him on Vraylar which caused him to have irrational thoughts and he was discontinued from that medication. Patient reports that he has relapsed on methamphetamines and use those 2 days ago. Patient is not currently taking any psychiatric medications. He reports that he has not had any recent inpatient psychiatric hospitalizations. He is open to inpatient hospitalization at this time. He typically does follow-up outpatient with the [facility]. He has had multiple suicide attempts in the past. He is also reporting hallucinations believing that demons are after him. He denies any homicidal ideation. (JASMIN NAVARRETE APRN) Review of Systems: Review of Systems: Constitutional: Denies fever or chills Eyes: Denies change in visual acuity HENT: Denies nasal congestion or sore throat Respiratory: Denies cough or shortness of breath Cardiovascular: Denies chest pain or edema GI: Denies abdominal pain, nausea, vomiting, bloody stools or diarrhea : Denies dysuria Musculoskeletal: Denies back pain or joint pain Integument: Denies rash Neurologic: Denies headache, focal weakness or sensory changes Endocrine: Denies polyuria or polydipsia Lymphatic: Denies swollen glands Psychiatric: Denies depression or anxiety (DARWIN ADAME MD) Review of Systems: Constitutional: Denies fevers GI: Denies nausea or vomiting Psychiatric: See HPI (JASMIN NAVARRETE APRN) Allergies: Allergies: Allergies Coded Allergies Type Severity Reaction Last Updated Verified chlorpromazine Allergy Intermediate 03/07/18 Yes haloperidol Allergy Intermediate Jaw movement. 06/08/14 Yes risperidone Allergy Intermediate 03/07/18 No sertraline Allergy Intermediate serotonin syndrome 06/08/14 Yes olanzapine Allergy Mild TIREDNESS 10/16/14 No (DARWIN ADAME MD) Physical Exam: PE: Constitutional: Well developed, well nourished, no acute distress, non-toxic appearance. [] HENT: Normocephalic, atraumatic, bilateral external ears normal, oropharynx moist, no oral exudates, nose normal. [] Eyes: PERRLA, EOMI, conjunctiva normal, no discharge. [] Neck: Normal range of motion, no tenderness, supple, no stridor. [] Cardiovascular:Heart rate regular rhythm, no murmur [] Lungs & Thorax: Bilateral breath sounds clear to auscultation [] Abdomen: Bowel sounds normal, soft, no tenderness, no masses, no pulsatile masses. [] Skin: Warm, dry, no erythema, no rash. [] Back: No tenderness, no CVA tenderness. [] Extremities: No tenderness, no cyanosis, no clubbing, ROM intact, no edema. [] Neurologic: Alert and oriented X 3, normal motor function, normal sensory function, no focal deficits noted. [] Psychologic: Affect normal, judgement normal, mood normal. [] (DARWIN ADAME MD) PE: Constitutional: Well developed, well nourished, no acute distress, non-toxic appearance. [] HENT: Normocephalic, atraumatic, bilateral external ears normal, oropharynx moist, no oral exudates, nose normal. [] Eyes: PERRL, EOMI, conjunctiva normal, no discharge. [] Neck: Normal range of motion, no tenderness, supple, no stridor. [] Cardiovascular:Heart rate regular rhythm, no murmur [] Lungs & Thorax: Bilateral breath sounds clear to auscultation [] Abdomen: Bowel sounds normal, soft, no tenderness, no masses, no pulsatile masses. [] Skin: Warm, dry, no erythema, no rash. [] Back: No tenderness, normal range of motion Extremities: No tenderness, no cyanosis, no clubbing, ROM intact, no edema. [] Neurologic: Alert and oriented X 3, normal motor function, normal sensory function, no focal deficits noted, normal speech Psychologic: Anxious appearing (JASMIN NAVARRETE APRN) Current Patient Data: Labs: Laboratory Tests Test 06/26/21 20:50 06/26/21 21:00 Urine Collection Type Unknown Urine Color Yellow Urine Clarity Clear Urine pH 6.0 Urine Specific [place] >=1.030 Urine Protein 30 mg/dl Urine Glucose (UA) Neg mg/dL Urine Ketones (Stick) 80 mg/dL Urine Blood Trace Urine Nitrite Neg Urine Bilirubin Mod Urine Urobilinogen Dipstick 1.0 mg/dL Urine Leukocyte Esterase Neg Urine RBC Occ /HPF Urine WBC 1-4 /HPF Urine Squamous Epithelial Cells Occ /LPF Urine Bacteria Few /HPF Urine Mucus Marked /LPF Urine Opiates Screen Neg Urine Methadone Screen Neg Urine Barbiturates Neg Urine Phencyclidine Screen Neg Urine Amphetamine/Methamphetamine Pos Urine Benzodiazepines Screen Neg Urine Cocaine Screen Neg Urine Cannabinoids Screen Pos Urine Ethyl Alcohol Neg White Blood Count 8.9 x10^3/uL Red Blood Count 4.91 x10^6/uL Hemoglobin 16.4 g/dL Hematocrit 48.6 % Mean Corpuscular Volume 99 fL Mean Corpuscular Hemoglobin 33 pg Mean Corpuscular Hemoglobin Concent 34 g/dL Red Cell Distribution Width 13.7 % Platelet Count 179 x10^3/uL Neutrophils (%) (Auto) 65 % Lymphocytes (%) (Auto) 22 % Monocytes (%) (Auto) 9 % Eosinophils (%) (Auto) 4 % Basophils (%) (Auto) 1 % Neutrophils # (Auto) 5.8 x10^3uL Lymphocytes # (Auto) 1.9 x10^3/uL Monocytes # (Auto) 0.8 x10^3/uL Eosinophils # (Auto) 0.3 x10^3/uL Basophils # (Auto) 0.1 x10^3/uL Sodium Level 137 mmol/L Potassium Level 4.0 mmol/L Chloride Level 99 mmol/L Carbon Dioxide Level 28 mmol/L Anion Gap 10 Blood Urea Nitrogen 13 mg/dL Creatinine 1.0 mg/dL Estimated GFR (Cockcroft-Gault) 82.8 BUN/Creatinine Ratio 13 Glucose Level 166 mg/dL Calcium Level 8.7 mg/dL Total Bilirubin 0.6 mg/dL Aspartate Amino Transf (AST/SGOT) 22 U/L Alanine Aminotransferase (ALT/SGPT) 41 U/L Alkaline Phosphatase 77 U/L Total Protein 6.5 g/dL Albumin 3.4 g/dL Albumin/Globulin Ratio 1.1 Salicylates Level 6.0 mg/dL Salicylate Last Dose Date Salicylate Last Dose Time Acetaminophen Level < 2.0 mcg/mL Acetaminophen Last Dose Date Acetaminophen Last Dose Time (JASMIN NAVARRETE APRN) EKG: EKG: [] (DARWIN ADAME MD) Radiology/Procedures: Radiology/Procedures: [] (DARWIN ADAME MD) Heart Score: Risk Factors: Risk Factors: DM, Current or recent (<one month) smoker, HTN, HLP, family history of CAD, obesity. Risk Scores: Score 0 - 3: 2.5% MACE over next 6 weeks - Discharge Home Score 4 - 6: 20.3% MACE over next 6 weeks - Admit for Clinical Observation Score 7 - 10: 72.7% MACE over next 6 weeks - Early Invasive Strategies (DARWIN ADAME MD) C/O Chest Pain: N/A (JASMIN NAVARRETE APRN) Course & Med Decision Making: Course & Med Decision Making Pertinent Labs and Imaging studies reviewed. (See chart for details) See PAT nicholas. Awaiting PCR for COVID at shift change. Impression; 1. Suicidal Ideation, 2. Depression 3. Anxiety 4. Drug screen + for Marijuana and Meth. Endorse to Dr. Spicer at shift change. [] (DARWIN ADAME MD) Course & Med Decision Making Patient presents to the emergency department today for suicidal ideation. Work- up in the ER consisted of blood work, urinalysis to medically clear patient and patient was placed in suicide precautions and a one-to-one was ordered. Patient to be evaluated by member of the psychiatric assessment team. Patient's lab work is unremarkable. His UDS was positive for marijuana and methamphetamines. Patient is medically cleared at this time 2147. Patient awaiting evaluation by the psychiatric assessment team. I discussed patient's case with Dr. Adame and he will assume patient care at this time due to shift change.2147. (JASMIN NAVARRETE APRN) Course & Med Decision Making The patient been calm and cooperative throughout my shift. He has been accepted to [facility] in [place], [place]. He will transfer by ambulance. (NADIA SPICER DO) Dragon Disclaimer: Dragon Disclaimer: This electronic medical record was generated, in whole or in part, using a voice recognition dictation system. (DARWIN ADAME MD) Departure Departure: Impression: Primary Impression: Suicidal ideation Disposition: [facility] Condition: STABLE Referrals: RENETTA MEYERS MD (PCP) Dragon Disclaimer This chart was dictated in whole or in part using Voice Recognition software in a busy, high-work load, and often noisy Emergency Department environment. It may contain unintended and wholly unrecognized errors or omissions. (DARWIN ADAME MD) Dragon Disclaimer This chart was dictated in whole or in part using Voice Recognition software in a busy, high-work load, and often noisy Emergency Department environment. It may contain unintended and wholly unrecognized errors or omissions. (DARWIN ADAME MD) Attending Signature Attending Signature I have participated in the care of this patient and I have reviewed and agree with all pertinent clinical information above including history, exam, and recommendations. (DARWIN ADAME MD) Attending Signature Attending Signature I have participated in the care of this patient and I have reviewed and agree with all pertinent clinical information above including history, exam, and recommendations. (DARWIN ADAME MD) DARWIN ADAME MD June 26, 2021 20:33 JASMIN NAVARRETE APRN June 26, 2021 20:54 NADIA SPICER DO June 27, 2021 17:26
[2021-06-26 21:25] LABS: CLARITY,URINE CLEAR; COLOR,URINE YELLOW; GLUCOSE,URINE NEG (NEG); NITRITE,URINE NEG (NEG); RBC,URINE OCC /HPF (0-2)
[2021-06-26 21:26] LABS: BACTERIA,URINE FEW /HPF (0-FEW); BARBITURATES NEG (NEG); BENZODIAZEPINES NEG (NEG); CANNABINOIDS POS (NEG); COCAINE NEG (NEG); METHADONE NEG (NEG); OPIATES NEG (NEG); PHENCYCLIDINE NEG (NEG); SQUAMOUS EPITHELIAL CELL,UR OCC /LPF
[2021-06-26 21:27] LABS: AMPHETAMINE/METHAMPHETAMINE POS (NEG)
[2021-06-26 21:30] LABS: CALCIUM 8.7 mg/dL (8.5-10.1)
[2021-06-26 21:31] LABS: GFR 82.8
[2021-06-26 21:36] LABS: ALBUMIN 3.4 g/dL (3.4-5.0); ALBUMIN/GLOBULIN RATIO 1.1 (1.0-1.7); TOTAL BILIRUBIN 0.6 mg/dL (0.2-1.0); TOTAL PROTEIN 6.5 g/dL (6.4-8.2)
[2021-06-26 21:38] LABS: BASO # 0.1 x10^3/uL (0.0-0.2); BASO % 1 % (0-3); EOS # 0.3 x10^3/uL (0.0-0.7); EOS % 4 % (0-3); HEMATOCRIT 48.6 % (39.0-53.0); HEMOGLOBIN 16.4 g/dL (13.0-17.5); LYMPH # 1.9 x10^3/uL (1.0-4.8); LYMPH % 22 % (24-48); MEAN CORPUSCULAR HEMOGLOBIN 33 pg (25-35); MEAN CORPUSCULAR HGB CONC 34 g/dL (31-37); MEAN CORPUSCULAR VOLUME 99 fL (79-100); MONO # 0.8 x10^3/uL (0.0-1.1); MONO % 9 % (0-9); NEUT # 5.8 x10^3uL (1.8-7.7); NEUT % 65 % (31-73); PLATELET COUNT 179 x10^3/uL (140-400); RED BLOOD COUNT 4.91 x10^6/uL (4.30-5.70); RED CELL DISTRIBUTION WIDTH 13.7 % (11.5-14.5); WHITE BLOOD COUNT 8.9 x10^3/uL (4.0-11.0)
[2021-06-26 21:46] LABS: ACETAMIN < 2.0 mcg/mL (10-30)
[2021-06-27 02:02] LABS: INFLUENZA A PATIENT NEGATIVE (NEGATIVE); INFLUENZA B PATIENT NEGATIVE (NEGATIVE)
[2021-06-28 00:18] VITALS: BP 121/69
== END 2021-06-28 00:40 ==
LOC: ER 20:22
DX: R45.851 Suicidal ideations (principal); F31.9 Bipolar disorder, unspecified; F20.9 Schizophrenia, unspecified; F41.9 Anxiety disorder, unspecified; F17.210 Nicotine dependence, cigarettes, uncomplicated; F12.10 Cannabis abuse, uncomplicated; F15.10 Other stimulant abuse, uncomplicated; Z20.822 Contact with and (suspected) exposure to COVID-19; Z88.8 Allergy status to other drugs, medicaments and biological substances
CPT/HCPCS: 36415; 80053; 80307; 80329; 81001; 85025; 87428; 99285; U0003; G0480